=== PATIENT | male | born 1960 | race Hispanic/Latino ===

== ENCOUNTER 2018-05-11 08:52 | Inpatient (IN) | payer MEDICARE, OTHER ==
[2018-05-11 09:55] LABS: Basophils % (Auto) 0.3 % (0.0-1.8); Eosinophils % (Auto) 0.2 % (0.0-4.3); Hematocrit 37.3 % (35.5-45.6); Lymphocytes # (Auto) 0.3 K/mm3 (1.2-5.4); Lymphocytes % (Auto) 4.4 % (13.4-35.0); Mean Corpuscular HGB Conc 35 % (32-34); Mean Corpuscular Hemoglobin 34 pg (28-32); Mean Corpuscular Volume 97 fl (84-94); Monocytes # (Auto) 0.6 K/mm3 (0.0-0.8); Monocytes % (Auto) 9.9 % (0.0-7.3); Platelet Count 156 K/mm3 (140-440); Red Blood Count 3.85 M/mm3 (3.65-5.03); Red Cell Distribution Width 13.6 % (13.2-15.2)
[2018-05-11 09:56] LABS: Alanine Aminotransferase 58 units/L (7-56); Albumin 4.3 g/dL (3.9-5); BUN/Creatinine Ratio 16; Blood Urea Nitrogen 8 mg/dL (9-20); Calcium 8.2 mg/dL (8.4-10.2); Hemolysis Index 34
--- NOTE | 2018-05-11 10:38 | Emergency Department Report ---
HPI - General Chief Complaint: Altered Mental Status Time Seen by Provider: 05/11/18 09:45 - HPI HPI: 58-year-old male presents to the emergency department via EMS from a convenience store where he was found altered, confused and combative. He was given 5 mg of Versed for this reason. Patient says that "I don't remember passing out" he is currently awake and alert but acting very fidgety. He has a past medical history of hypertension but is not on medication. He has a history of hepatitis C, alcohol abuse, some drug use and previous oxycodone addiction. Patient currently just complains of some generalized body aches. Denies having a primary care physician. Denies any tobacco use. Patient says that he did drink last night but does not drink every day. ED Past Medical Hx - Past Medical History Hx Hypertension: Yes (no meds) Hx Congestive Heart Failure: No Hx Diabetes: No Hx Psychiatric Treatment: Yes (alcoholism, drug use, Oxycodone addiction) Hx Asthma: No Hx COPD: No Additional medical history: Hepatitis C, RT BBB - Surgical History Additional Surgical History: Mu. shoulder surgery - Social History Smoking Status: Current Every Day Smoker - Medications Home Medications: Home Medications Medication Instructions Recorded Confirmed Last Taken Type LORazepam [Ativan] 2 mg PO QID 05/11/18 05/11/18 Unknown History Multivitamin Tab [Multiple Vitamin 1 each PO DAILY 05/11/18 05/11/18 Unknown History TAB (Theragran)] ED Review of Systems ROS: Stated complaint: AMS Other details as noted in HPI Comment: All other systems reviewed and negative Constitutional: denies: chills, fever Eyes: denies: eye pain, eye discharge, vision change ENT: denies: ear pain, throat pain Respiratory: denies: cough, shortness of breath, wheezing Cardiovascular: syncope (questionable). denies: chest pain Gastrointestinal: denies: abdominal pain, nausea, diarrhea Genitourinary: denies: urgency, dysuria Musculoskeletal: myalgia. denies: joint swelling Skin: denies: rash, lesions Neurological: denies: headache, numbness Physical Exam - Physical Exam Vital Signs: Vital Signs 05/11/18 05/11/18 05/11/18 09:06 09:19 09:21 Temperature 98.5 F Pulse Rate 96 H 91 H Respiratory 16 16 16 Rate Blood Pressure 148/93 140/87 [Right] O2 Sat by Pulse 96 95 95 Oximetry Physical Exam: GENERAL: The patient is well-developed well-nourished. HENT: Normocephalic. Atraumatic. Patient has moist mucous membranes. EYES: Extraocular motions are intact. Pupils equal reactive to light bilaterally. NECK: Supple. Trachea is midline. CHEST/LUNGS: Clear to auscultation. There is no respiratory distress noted. HEART/CARDIOVASCULAR: Regular. There is no tachycardia. There is no murmur. ABDOMEN: Abdomen is soft, nontender. Patient has normal bowel sounds. There is no abdominal distention. SKIN: Skin is warm and dry. NEURO: Patient is awake and alert and cooperative. Cranial nerves II through XII grossly intact. He is very fidgety. MUSCULOSKELETAL: There is no tenderness or deformity. There is no limitation range of motion. There is no evidence of acute injury. ED Course Vital Signs 05/11/18 05/11/18 05/11/18 09:06 09:19 09:21 Temperature 98.5 F Pulse Rate 96 H 91 H Respiratory 16 16 16 Rate Blood Pressure 148/93 140/87 [Right] O2 Sat by Pulse 96 95 95 Oximetry ED Medical Decision Making - Lab Data Result diagrams: 05/11/18 09:18 05/11/18 17:31 - EKG Data -: EKG Interpreted by Ar EKG shows normal: sinus rhythm, axis (borderline right axis deviation), intervals (prolonged QTc and DE intervals), QRS complexes (right bundle branch block), ST-T waves - EKG Data When compared to previous EKG there are: no significant change Interpretation: unchanged when compared t (12/29/16) - Radiology Data Radiology results: report reviewed CT of the head does not show any acute intracranial process including no ischemia, shift, mass, bleeding or skull fracture. Chronic lacunar infarcts seen in both basal ganglia. - Medical Decision Making Patient was found altered at a convenience store. Despite saying that he had been drinking, his blood alcohol levels negative. However I do believe that he could be a alcoholic as the sodium level came back at 118. This alone could be the reason for the patient's altered mental status. CT of the head did not show any bleed, shift, mass or any other acute process. Urine drug screen positive for benzodiazepines. Otherwise the labs up in unremarkable. Vital signs stable throughout his ED course. The patient will be admitted to the hospital for further evaluation and probable nephrology consultation. Patient was accepted for admission by the hospitalist, Dr. Echols. - Differential Diagnosis hyponatremia, alcohol intoxication, substance abuse, CVA, TIA Critical Care Time: No Critical care attestation.: If time is entered above; I have spent that time in minutes in the direct care of this critically ill patient, excluding procedure time. ED Disposition Clinical Impression: Encephalopathy, Hyponatremia syndrome Hypertension Qualifiers: Hypertension type: essential hypertension Qualified Code(s): I10 - Essential ( primary) hypertension Disposition: OP ADMIT IP TO THIS HOSP Is pt being admited?: Yes Condition: Fair Time of Disposition: 19:10
--- NOTE | 2018-05-11 10:54 | Cat Scan Report ---
CT HEAD WITHOUT CONTRAST: HISTORY: Altered mental status. TECHNIQUE: Sequential 2.5mm CT images. COMPARISON: none. FINDINGS: Cerebral Parenchyma: Mild diffuse volume loss is evident. A chronic 1.3 cm infarct is identified in the right basal ganglia. There are 2 subcentimeter chronic lacunar infarcts in the left basal ganglia. The remaining brain parenchyma is within normal limits. Cerebellum: Within normal limits. Brainstem: Within normal limits. Ventricles: Normal. Sella: Normal. Extra-axial spaces: Normal. Basal Cisterns: Normal. Intracranial Hemorrhage: None. Midline Shift: None. Calvarium: Normal. Sinuses: Normal. Mastoid Air Cells: Normal. Visualized Orbits: Normal. IMPRESSION: No acute intracranial process. Volume loss. Chronic lacunar infarcts in both basal ganglia.
[2018-05-11] MEDS ORDERED: VITAMIN B-1 100 MG, FOLVITE 1 MG, INFUVITE 10 ML in NACL 0.9% 1000 ML 1,000 ML IV ONE (11:22)
[2018-05-11 11:27] LABS: Bilirubin,Urine NEG (Negative); Blood,Urine NEG (Negative); Color,Urine Straw (Yellow); Urobilinogen,Urine < 2.0 mg/dL (<2.0)
--- NOTE | 2018-05-11 11:28 | History and Physical Report ---
History of Present Illness Chief complaint: confused History of present illness: 58 YO Male with ETOH Abuse, ETOH Withdrawl with Seizures, Nicotine Dependence, HCV, HTN , RBBB, presents to ED for evaluation. Pt is confused and unable to provide history. Pt history taken from ED staff. As per staff, the patient was found confused,combative outside a local convenient store. EMS notified, and upon arrival the patient was found to be confused and combative. Pt transported to [facility] for further care and evaluation. Pt seen and evaluated in ED and found to have Encephalopathy, Hyponatremia. Pt admitted to telemetry. Nephrology consulted in ED. No reports of fever, chills, CP, Palpitations, NVD, Syncope, Trauma, BRBPR, Productive cough, recent ill contacts, skin rash, unintentional weight loss, night sweats. Past History Past Medical History: hepatitis, hypertension, seizures Past Surgical History: Other (Bilateral Shoulder surgery) Social history: smoking, alcohol abuse Family history: no significant family history (reviewed) Medications and Allergies Allergies Allergy/AdvReac Type Severity Reaction Status Date / Time Penicillins Allergy Hives Verified 10/23/14 19:07 Home Medications Medication Instructions Recorded Confirmed Last Taken Type LORazepam [Ativan] 2 mg PO QID 05/11/18 05/11/18 Unknown History Multivitamin Tab [Multiple Vitamin 1 each PO DAILY 05/11/18 05/11/18 Unknown History TAB (Theragran)] Active Meds: Active Medications Thiamine HCl 100 mg/ Folic Acid 1 mg/ Multivitamins/Minerals 10 ml/ Sodium Chloride 1,011.2 mls @ 250 mls/hr IV ONCE ONE Stop: 05/11/18 15:24 Review of Systems ROS unobtainable: due to mental status Exam - Constitutional Vitals: Temp Pulse Resp BP Pulse Ox 98.5 F 91 H 16 140/87 95 05/11/18 09:06 05/11/18 09:19 05/11/18 09:21 05/11/18 09:19 05/11/18 09:21 General appearance: Present: mild distress, cachectic - EENT Eyes: Present: miosis ENT: hearing intact, clear oral mucosa - Neck Neck: Present: supple, normal ROM - Respiratory Respiratory effort: normal Respiratory: bilateral: CTA - Cardiovascular Heart Sounds: Present: S1 & S2. Absent: rub, click - Extremities Extremities: pulses symmetrical, No edema Extremity abnormal: edema Peripheral Pulses: within normal limits - Abdominal General gastrointestinal: Present: soft, non-tender, distended Male genitourinary: Present: normal - Integumentary Integumentary: Present: clear, warm, dry - Musculoskeletal Musculoskeletal: generalized weakness - Psychiatric Psychiatric: no appropriate mood/affect, no intact judgment & insight, no memory intact - Neurologic Neurologic: no focal deficits, moves all extremities, no gait normal Results - Labs CBC & Chem 7: 05/11/18 09:18 05/11/18 09:18 Labs: Abnormal lab results 05/11/18 05/11/18 Range/Units 09:18 09:18 MCV 97 H (84-94) fl MCH 34 H (28-32) pg MCHC 35 H (32-34) % Lymph % (Auto) 4.4 L (13.4-35.0) % [place] % (Auto) 9.9 H (0.0-7.3) % Lymph # 0.3 L (1.2-5.4) K/mm3 Seg Neutrophils % 85.2 H (40.0-70.0) % Sodium 118 L* (137-145) mmol/L Chloride 79.7 L (98-107) mmol/L Carbon Dioxide 20 L (22-30) mmol/L BUN 8 L (9-20) mg/dL Creatinine 0.5 L (0.8-1.5) mg/dL Glucose 141 H (75-100) mg/dL Calcium 8.2 L (8.4-10.2) mg/dL AST 54 H (5-40) units/L ALT 58 H (7-56) units/L Assessment and Plan - Patient Problems (1) Encephalopathy Current Visit: Yes Status: Acute Plan to address problem: CT head, neuro checks, aspiration precautions, thyroid panel, fall precautions, BAL (2) Hyponatremia syndrome Current Visit: Yes Status: Acute Plan to address problem: IVF resuscitation therapy, Nephrology consulted in ED. (3) Alcohol abuse Current Visit: No Status: Acute Plan to address problem: CIWA protocol, banana bag, thiamine, folic acid, multivitamin, (4) Nicotine dependence Current Visit: No Status: Acute Qualifiers: Nicotine product type: cigarettes Substance use status: in withdrawal Qualified Code(s): F17.213 - Nicotine dependence, cigarettes, with withdrawal Plan to address problem: Smoking cessation counseling, supportive care. (5) DVT prophylaxis Current Visit: No Status: Acute Plan to address problem: SCD to BLE while in bed.
[2018-05-11] MEDS ORDERED: SODIUM CHLORIDE FLUSH SYRINGE 10 ML IV PRN (11:29)
[2018-05-11] MEDS ORDERED: TYLENOL PO PRN (11:29)
[2018-05-11] MEDS ORDERED: ZOFRAN IV PRN (11:29)
[2018-05-11] MEDS ORDERED: NACL 0.9% 1000 ML 1,000 ML IV SCH (12:00)
[2018-05-11 12:03] LABS: Amphetamine Screen,Urine PRESUMPTIVE NEGATIVE; Cannabinoid Screen,Urine PRESUMPTIVE NEGATIVE; Cocaine Screen,Urine PRESUMPTIVE NEGATIVE; Methadone Screen,Urine PRESUMPTIVE NEGATIVE; Opiate Screen,Urine PRESUMPTIVE NEGATIVE
[2018-05-11 12:16] LABS: Benzodiazepines Screen,Urine PRESUMPTIVE POSITIVE
[2018-05-11] MEDS: ATIVAN PO SCH ×3 (14:00→22:11)
[2018-05-11 18:46] LABS: Blood Urea Nitrogen TNR mg/dL (9-20)
[2018-05-11 18:47] LABS: BUN/Creatinine Ratio TNR; Calcium TNR mg/dL (8.4-10.2); Hemolysis Index TNR
[2018-05-11 21:09] LABS: BUN/Creatinine Ratio 23; Blood Urea Nitrogen 14 mg/dL (9-20); Hemolysis Index 7
[2018-05-11] MEDS ORDERED: D5W 1,000 ML IV SCH (22:00)
[2018-05-11] MEDS: SODIUM CHLORIDE FLUSH SYRINGE 10 ML IV SCH (22:12)
[2018-05-12] MEDS: ATIVAN IV PRN (02:56)
[2018-05-12 06:56] LABS: Alanine Aminotransferase 53 units/L (7-56); BUN/Creatinine Ratio 18; Blood Urea Nitrogen 11 mg/dL (9-20); Calcium 8.9 mg/dL (8.4-10.2); Hemolysis Index 8
--- NOTE | 2018-05-12 08:29 | Consultation ---
History of Present Illness - Reason for Consult Consult date: 05/12/18 hyponatremia - History of Present Illness The patient was a 58 YO Male with history significant for ETOH Abuse, h/o ETOH Withdrawal Seizures, Nicotine Dependence, Hep.C, HTN and RBBB who presented to ED for evaluation of AMS. Pt couldn't remember the events. The patient was found confused, combative outside a local convenient store. EMS found him confused and combative. Pt was transported to [facility] for further care and evaluation. Pt was found to have Encephalopathy and Hyponatremia. Pt admitted to telemetry. Nephrology consulted for Sodium level of 118. He drinks few beers a day. Past History Past Medical History: hepatitis, hypertension, seizures Past Surgical History: Other (Bilateral Shoulder surgery) Social history: smoking, alcohol abuse Family history: no significant family history (reviewed) Medications and Allergies Allergies Allergy/AdvReac Type Severity Reaction Status Date / Time Penicillins Allergy Hives Verified 10/23/14 19:07 Home Medications Medication Instructions Recorded Confirmed Last Taken Type LORazepam [Ativan] 2 mg PO QID 05/11/18 05/11/18 Unknown History Multivitamin Tab [Multiple Vitamin 1 each PO DAILY 05/11/18 05/11/18 Unknown History TAB (Theragran)] Active Meds: Active Medications Acetaminophen (Tylenol) 650 mg PO Q4H PRN PRN Reason: Pain MILD(1-3)/Fever >100.5/MENDEZ Folic Acid (Folvite) 1 mg PO QDAY [facility] Dextrose (D5w) 1,000 mls @ 75 mls/hr IV DIRECT [facility] Last Admin: 05/12/18 04:18 Dose: 75 mls/hr Lorazepam (Ativan) 2 mg PO QID [facility] Last Admin: 05/11/18 22:11 Dose: 2 mg Lorazepam (Ativan) 1 mg IV Q2H PRN PRN Reason: Anxiety Last Admin: 05/12/18 02:56 Dose: 1 mg Multivitamins (Theragran Tab) 1 each PO DAILY [facility] Ondansetron HCl (Zofran) 4 mg IV Q8H PRN PRN Reason: Nausea And Vomiting Sodium Chloride (Sodium Chloride Flush Syringe 10 Ml) 10 ml IV BID [facility] Last Admin: 05/11/18 22:12 Dose: 10 ml Sodium Chloride (Sodium Chloride Flush Syringe 10 Ml) 10 ml IV PRN PRN PRN Reason: LINE FLUSH Thiamine HCl (Vitamin B-1) 100 mg PO QDAY [facility] Review of Systems Constitutional: no weight loss, no weight gain, no fever, no chills, no weakness Cardiovascular: high blood pressure, no chest pain, no orthopnea, no edema, no syncope, no lightheadedness, no shortness of breath, no leg edema Respiratory: no cough Gastrointestinal: no abdominal pain, no nausea, no vomiting, no diarrhea, no melena Neurological: change in mentation, confusion Exam - Vital Signs Vital signs: Vital Signs Temp Pulse Resp BP Pulse Ox 98.5 F 96 H 16 148/93 96 05/11/18 09:06 05/11/18 09:06 05/11/18 09:06 05/11/18 09:06 05/11/18 09:06 - General Appearance General appearance: well-developed, well-nourished, appears stated age, other ( not in distress) EENT: ATNC, PERRL, hearing intact, vision intact Neck: Present: neck supple, trachea midline Respiratory: Clear to Ascultation Heart: regular, S1S2, no murmurs Gastrointestinal: Present: normoactive bowel sounds. Absent: tenderness, distended Integumentary: no rash, warm and dry Neurologic: no focal deficit, no asterixis Musculoskeletal: Present: other (no edema) Results - Lab Results 05/11/18 09:18 05/12/18 13:58 Most recent lab results Calcium 8.9 mg/dL (8.4-10.2) 05/12/18 05:58 Phosphorus 3.00 mg/dL (2.5-4.5) 05/12/18 05:58 Magnesium 2.30 mg/dL (1.7-2.3) 05/12/18 05:58 Assessment and Plan 1. Hyponatremia: Likely secondary to volume depletion. Sodium level is better. Monitor Sodium level. 2. Replete K. 3. Encephalopathy: Improved. 4. Alcohol abuse.
[2018-05-12] MEDS ORDERED: K-DUR PO NR (09:00)
[2018-05-12] MEDS: FOLVITE PO SCH (09:22)
[2018-05-12] MEDS: VITAMIN B-1 PO SCH (09:22)
[2018-05-12] MEDS: THERAGRAN Tab PO SCH (09:22)
[2018-05-12] MEDS: ATIVAN PO SCH ×4 (09:22→21:53)
[2018-05-12] MEDS: SODIUM CHLORIDE FLUSH SYRINGE 10 ML IV SCH ×2 (09:23→21:53)
[2018-05-12 14:32] LABS: BUN/Creatinine Ratio 20; Blood Urea Nitrogen 12 mg/dL (9-20); Calcium 8.8 mg/dL (8.4-10.2); Hemolysis Index 13
--- NOTE | 2018-05-12 15:30 | Progress Note ---
Assessment and Plan Assessment and Plan - Patient Problems (1) Encephalopathy Current Visit: Yes Status: Acute Plan to address problem: Improved (2) Hyponatremia syndrome Current Visit: Yes Status: Acute Plan to address problem: IVF resuscitation therapy, Nephrology consulted in ED. Check Sodium levels (3) Alcohol abuse Current Visit: No Status: Acute Plan to address problem: CIWA protocol, banana bag, thiamine, folic acid, multivitamin, (4) Nicotine dependence Current Visit: No Status: Acute Qualifiers: Nicotine product type: cigarettes Substance use status: in withdrawal Qualified Code(s): F17.213 - Nicotine dependence, cigarettes, with withdrawal Plan to address problem: Smoking cessation counseling, supportive care. (5) DVT prophylaxis Current Visit: No Status: Acute Plan to address problem: SCD to BLE while in bed. Subjective Date of service: 05/12/18 Principal diagnosis: Hyponatremia Interval history: Doing better,more alert Objective - Constitutional Vitals: Vital Signs - 12hr 05/12/18 05/12/18 05/12/18 04:16 07:52 10:00 Temperature 98.1 F 98.6 F Pulse Rate 81 89 Pulse Rate [ 89 Radial] Respiratory 18 18 Rate Blood Pressure 149/92 138/87 O2 Sat by Pulse 99 99 99 Oximetry 05/12/18 11:18 Temperature 98.4 F Pulse Rate 91 H Pulse Rate [ Radial] Respiratory 18 Rate Blood Pressure 144/80 O2 Sat by Pulse 99 Oximetry General appearance: Present: no acute distress, well-nourished - EENT Eyes: PERRL, EOM intact ENT: hearing intact, clear oral mucosa Ears: bilateral: normal - Neck Neck: supple, normal ROM - Respiratory Respiratory effort: normal Respiratory: bilateral: CTA - Breasts Breasts: normal - Cardiovascular Rhythm: regular Heart Sounds: Present: S1 & S2. Absent: gallop, rub Extremities: pulses intact, No edema, normal color, Full ROM - Gastrointestinal General gastrointestinal: Present: soft, non-tender, non-distended, normal bowel sounds - Genitourinary Male genitourinary: normal - Integumentary Integumentary: clear, warm, dry - Musculoskeletal Musculoskeletal: 1, strength equal bilaterally - Neurologic Neurologic: moves all extremities - Psychiatric Psychiatric: memory intact, appropriate mood/affect, intact judgment & insight - Labs CBC & Chem 7: 05/11/18 09:18 05/12/18 13:58 Labs: Abnormal lab results 05/11/18 05/12/18 05/12/18 Range/Units 20:32 05:58 13:58 Sodium 129 L D 131 L 131 L (137-145) mmol/L Potassium 3.5 L (3.6-5.0) mmol/L Chloride 90.0 L 94.2 L 94.7 L (98-107) mmol/L Creatinine 0.6 L 0.6 L 0.6 L (0.8-1.5) mg/dL Glucose 107 H 104 H (75-100) mg/dL AST 48 H (5-40) units/L
[2018-05-13] MEDS: ATIVAN IV PRN (04:24)
[2018-05-13] MEDS: D5/0.45NS 1,000 ML IV SCH ×2 (04:24→18:22)
[2018-05-13 04:38] LABS: BUN/Creatinine Ratio 22; Blood Urea Nitrogen 13 mg/dL (9-20); Calcium 8.7 mg/dL (8.4-10.2); Hemolysis Index 37
[2018-05-13] MEDS: VITAMIN B-1 PO SCH (11:41)
[2018-05-13] MEDS: THERAGRAN Tab PO SCH (11:41)
[2018-05-13] MEDS: ATIVAN PO SCH ×4 (11:42→21:20)
[2018-05-13] MEDS: FOLVITE PO SCH (11:42)
[2018-05-13] MEDS: SODIUM CHLORIDE FLUSH SYRINGE 10 ML IV SCH ×2 (11:51→21:20)
--- NOTE | 2018-05-13 12:31 | Progress Note ---
Assessment and Plan Assessment and plan: 58 YO Male with ETOH Abuse, ETOH Withdrawl with Seizures, Nicotine Dependence, HCV, HTN , RBBB, because he was found confused,combative outside a local convenient store Past History Past Medical History: hepatitis, hypertension, seizures Acute metabolic Encephalopathy Improved , due to hyponatremia Hyponatremia syndrome -Na has improved from 118 to 134 continue nS -likely due to etoh potomania Alcohol abuse CIWA protocol, banana bag, thiamine, folic acid, multivitamin, Nicotine dependence Smoking cessation counseling, supportive care. DVT prophylaxis SCD to BLE while in bed. History Interval history: Review of systems Constitutional: No fevers, no malaise, no joint pains CVS: No chest pain, no orthopnea, no dyspnea on exertion, no pedal edema GI: No abdominal pain, no diarrhea, no vomiting, no constipation Respiratory: No shortness of breath, no wheezing, no coughing Hospitalist Physical - Physical exam Narrative exam: General.: Appears well, no distress, nontoxic HEENT: Moist mucous membranes, extraocular muscles intact, no lymphadenopathy Neck: supple Cardiac: S1-S2 heard Lungs: clear to auscultation bilaterally Abdomen: soft , nontender, nondistended, bowel sounds positive Extremities: no edema clubbing or cyanosis Skin: no rash or lesions Neurologic: no gross focal deficits Psych: appropriate behavior, appropriate mood, corporative, judgment intact - Constitutional Vitals: Temp Pulse Resp BP Pulse Ox 98.4 F 84 18 156/93 99 05/13/18 12:13 05/13/18 12:13 05/13/18 12:13 05/13/18 12:13 05/13/18 12:13 General appearance: Present: no acute distress, well-nourished Results - Labs CBC & Chem 7: 05/11/18 09:18 05/13/18 03:53 Labs: Laboratory Last Values WBC 6.4 K/mm3 (4.5-11.0) 05/11/18 09:18 RBC 3.85 M/mm3 (3.65-5.03) 05/11/18 09:18 Hgb 13.0 gm/dl (11.8-15.2) 05/11/18 09:18 Hct 37.3 % (35.5-45.6) 05/11/18 09:18 MCV 97 fl (84-94) H 05/11/18 09:18 MCH 34 pg (28-32) H 05/11/18 09:18 MCHC 35 % (32-34) H 05/11/18 09:18 RDW 13.6 % (13.2-15.2) 05/11/18 09:18 Plt Count 156 K/mm3 (140-440) 05/11/18 09:18 Lymph % (Auto) 4.4 % (13.4-35.0) L 05/11/18 09:18 [place] % (Auto) 9.9 % (0.0-7.3) H 05/11/18 09:18 Eos % (Auto) 0.2 % (0.0-4.3) 05/11/18 09:18 Baso % (Auto) 0.3 % (0.0-1.8) 05/11/18 09:18 Lymph # 0.3 K/mm3 (1.2-5.4) L 05/11/18 09:18 [place] # 0.6 K/mm3 (0.0-0.8) 05/11/18 09:18 Eos # 0.0 K/mm3 (0.0-0.4) 05/11/18 09:18 Baso # 0.0 K/mm3 (0.0-0.1) 05/11/18 09:18 Seg Neutrophils % 85.2 % (40.0-70.0) H 05/11/18 09:18 Seg Neutrophils # 5.5 K/mm3 (1.8-7.7) 05/11/18 09:18 Sodium 134 mmol/L (137-145) L 05/13/18 03:53 Potassium 3.8 mmol/L (3.6-5.0) 05/13/18 03:53 Chloride 97.1 mmol/L (98-107) L 05/13/18 03:53 Carbon Dioxide 27 mmol/L (22-30) 05/13/18 03:53 Anion Gap 14 mmol/L 05/13/18 03:53 BUN 13 mg/dL (9-20) 05/13/18 03:53 Creatinine 0.6 mg/dL (0.8-1.5) L 05/13/18 03:53 Estimated GFR > 60 ml/min 05/13/18 03:53 BUN/Creatinine Ratio 22 % 05/13/18 03:53 Glucose 108 mg/dL (75-100) H 05/13/18 03:53 POC Glucose 123 (70-105) H 05/12/18 20:21 Calcium 8.7 mg/dL (8.4-10.2) 05/13/18 03:53 Phosphorus 3.00 mg/dL (2.5-4.5) 05/12/18 05:58 Magnesium 2.30 mg/dL (1.7-2.3) 05/12/18 05:58 Total Bilirubin 1.00 mg/dL (0.1-1.2) 05/12/18 05:58 AST 48 units/L (5-40) H 05/12/18 05:58 ALT 53 units/L (7-56) 05/12/18 05:58 Alkaline Phosphatase 122 units/L (35-129) 05/12/18 05:58 Total Protein 7.0 g/dL (6.3-8.2) 05/12/18 05:58 Albumin 4.0 g/dL (3.9-5) 05/12/18 05:58 Albumin/Globulin Ratio 1.3 % 05/12/18 05:58 TSH 12.320 mlU/mL (0.270-4.200) H 05/11/18 09:18 Free T4 0.86 ng/dL (0.76-1.46) 05/11/18 17:31 Urine Color Straw (Yellow) 05/11/18 Unknown Urine Turbidity Clear (Clear) 05/11/18 Unknown Urine pH 7.0 (5.0-7.0) 05/11/18 Unknown Ur Specific [place] 1.006 (1.003-1.030) 05/11/18 Unknown Urine Protein 30 mg/dl mg/dL (Negative) 05/11/18 Unknown Urine Glucose (UA) Neg mg/dL (Negative) 05/11/18 Unknown Urine Ketones Neg mg/dL (Negative) 05/11/18 Unknown Urine Blood Neg (Negative) 05/11/18 Unknown Urine Nitrite Neg (Negative) 05/11/18 Unknown Urine Bilirubin Neg (Negative) 05/11/18 Unknown Urine Urobilinogen < 2.0 mg/dL (<2.0) 05/11/18 Unknown Ur Leukocyte Esterase Neg (Negative) 05/11/18 Unknown Urine WBC (Auto) 1.0 /HPF (0.0-6.0) 05/11/18 Unknown Urine RBC (Auto) 1.0 /HPF (0.0-6.0) 05/11/18 Unknown Urine Opiates Screen Presumptive negative 05/11/18 Unknown Urine Methadone Screen Presumptive negative 05/11/18 Unknown Ur Barbiturates Screen Presumptive negative 05/11/18 Unknown Ur Phencyclidine Scrn Presumptive negative 05/11/18 Unknown Ur Amphetamines Screen Presumptive negative 05/11/18 Unknown U Benzodiazepines Scrn Presumptive positive 05/11/18 Unknown Urine Cocaine Screen Presumptive negative 05/11/18 Unknown U Marijuana (THC) Screen Presumptive negative 05/11/18 Unknown Drugs of Abuse Note Disclamer 05/11/18 Unknown Plasma/Serum Alcohol < 0.01 % (0-0.07) 05/11/18 09:18
--- NOTE | 2018-05-13 15:27 | Progress Note ---
Assessment and Plan Electrolyte Imbalance - Resolving HypoNa, continue IVF NS HTN - F/u on meds ETOH abuse - F/u Mx Subjective Date of service: 05/13/18 Principal diagnosis: Hyponatremia Interval history: No complaints Objective - Vital Signs Vital signs: Vital Signs - 12hr 05/13/18 05/13/18 05/13/18 04:46 04:50 05:12 Temperature 98.9 F Pulse Rate 79 69 78 Respiratory 18 Rate Blood Pressure 126/55 157/92 Blood Pressure 126/55 [Right] O2 Sat by Pulse 98 97 98 Oximetry 05/13/18 05/13/18 08:12 12:13 Temperature 98.6 F 98.4 F Pulse Rate 89 84 Respiratory 18 18 Rate Blood Pressure 148/99 156/93 Blood Pressure [Right] O2 Sat by Pulse 99 99 Oximetry - General Appearance General appearance: other (Awake & alert) EENT: PERRL Neck: no JVD Respiratory: Present: Clear to Ascultation Cardiology: regular, S1S2 Gastrointestinal: normal Neurologic: no focal deficit - Lab 05/11/18 09:18 05/13/18 03:53 Most recent lab results Calcium 8.7 mg/dL (8.4-10.2) 05/13/18 03:53 Phosphorus 3.00 mg/dL (2.5-4.5) 05/12/18 05:58 Magnesium 2.30 mg/dL (1.7-2.3) 05/12/18 05:58
[2018-05-14] MEDS: ATIVAN IV PRN ×2 (00:15→05:43)
[2018-05-14 07:55] LABS: Alanine Aminotransferase 40 units/L (7-56); Albumin 3.9 g/dL (3.9-5); BUN/Creatinine Ratio 22; Blood Urea Nitrogen 11 mg/dL (9-20); Calcium 8.8 mg/dL (8.4-10.2); Hemolysis Index 7
[2018-05-14 08:17] LABS: Basophils % (Auto) 0.8 % (0.0-1.8); Eosinophils # (Auto) 0.1 K/mm3 (0.0-0.4); Eosinophils % (Auto) 3.2 % (0.0-4.3); Hematocrit 40.1 % (35.5-45.6); Hemoglobin 13.7 gm/dl (11.8-15.2); Lymphocytes # (Auto) 0.5 K/mm3 (1.2-5.4); Lymphocytes % (Auto) 11.9 % (13.4-35.0); Mean Corpuscular HGB Conc 34 % (32-34); Mean Corpuscular Hemoglobin 34 pg (28-32); Mean Corpuscular Volume 98 fl (84-94); Monocytes # (Auto) 0.6 K/mm3 (0.0-0.8); Monocytes % (Auto) 14.7 % (0.0-7.3); Platelet Count 156 K/mm3 (140-440); Red Blood Count 4.08 M/mm3 (3.65-5.03); Red Cell Distribution Width 14.1 % (13.2-15.2)
[2018-05-14] MEDS: THERAGRAN Tab PO SCH (09:22)
[2018-05-14] MEDS: VITAMIN B-1 PO SCH (09:22)
[2018-05-14] MEDS: FOLVITE PO SCH (09:22)
[2018-05-14] MEDS: ATIVAN PO SCH ×2 (09:22→13:51)
--- NOTE | 2018-05-14 11:10 | Progress Note ---
Assessment and Plan Electrolyte Imbalance - Resolving HypoNa, continue IVF NS HTN - F/u on meds ETOH abuse - F/u Mx Subjective Date of service: 05/14/18 Principal diagnosis: Hyponatremia Objective - Vital Signs Vital signs: Vital Signs - 12hr 05/14/18 00:48 Temperature 98.9 F Pulse Rate 84 Respiratory 20 Rate Blood Pressure 144/86 O2 Sat by Pulse 97 Oximetry - General Appearance General appearance: other (Confused) EENT: PERRL Neck: no JVD Respiratory: Present: Other (Good air entry) Gastrointestinal: normal Neurologic: no focal deficit - Lab 05/14/18 07:20 05/14/18 07:20 Most recent lab results Calcium 8.8 mg/dL (8.4-10.2) 05/14/18 07:20 Phosphorus 3.60 mg/dL (2.5-4.5) 05/14/18 07:20 Magnesium 2.10 mg/dL (1.7-2.3) 05/14/18 07:20
[2018-05-14] MEDS: D5/0.45NS 1,000 ML IV SCH (13:12)
[2018-05-14 13:26] VITALS: BP 145/92
--- NOTE | 2018-05-14 13:43 | Discharge Summary ---
Providers - Providers Date of Admission: 05/11/18 11:29 Attending physician: GAMALIEL KAUR MD 05/11/18 11:34 Consult to Physician [CONS] Routine Comment: Consulting Provider: SHANTAL MIKE Physician Instructions: Reason For Exam: hyponatremia Primary care physician: LATH HAND Hospitalization Condition: Fair Disposition: DC-30 STILL A PATIENT Exam - Constitutional Vitals: Temp Pulse Resp BP Pulse Ox 98.3 F 80 18 145/92 98 05/14/18 12:18 05/14/18 12:18 05/14/18 12:18 05/14/18 12:18 05/14/18 12:18 Plan Follow up with: PRIMARY CARE, [Primary Care Provider] - 3-5 Days Prescriptions: Folic Acid [Folvite] 1 mg PO QDAY #30 tablet Multivitamin Tab [Multiple Vitamin TAB (Theragran)] 1 each PO DAILY #30 tablet Thiamine [Vitamin B-1] 100 mg PO QDAY #30 tablet
[2018-05-14] MEDS: SODIUM CHLORIDE FLUSH SYRINGE 10 ML IV SCH (13:51)
== END 2018-05-14 15:40 | disposition home or self-care (01) | DRG 640 ==
LOC: ED 08:52 → 3A 11:29 → 4A 12:57 → 3A 05-13 18:13
PROVIDERS: ADMIT Internal Medicine; ATTEND Internal Medicine
DX: E87.1 Hypo-osmolality and hyponatremia (principal); G93.41 Metabolic encephalopathy; F17.213 Nicotine dependence, cigarettes, with withdrawal; I10 Essential (primary) hypertension; B19.20 Unspecified viral hepatitis C without hepatic coma; I45.10 Unspecified right bundle-branch block; F10.10 Alcohol abuse, uncomplicated; Y90.0 Blood alcohol level of less than 20 mg/100 ml; Z88.0 Allergy status to penicillin; Z71.6 Tobacco abuse counseling; Z79.899 Other long term (current) drug therapy
CPT/HCPCS: 36415; 70450; 80048; 80053; 80307; 80320; 81001; 82962; 83735; 84100; 84439; 84443; 85025; 93005; 93010; 96374; G0480; J2060; J2405; J3411; J7030; J7070

== ENCOUNTER 2018-05-25 12:18 | Emergency (ER) | payer MEDICARE, OTHER ==
--- NOTE | 2018-05-25 12:49 | Emergency Department Report ---
ED General Adult HPI - General Stated complaint: DIZZINESS Time Seen by Provider: 05/25/18 12:39 - History of Present Illness Initial comments: 58-year-old male with a history of alcohol abuse, hepatitis C, and seizures who recently was discharged on May 142017 after being hyponatremic presents with the complaint of weakness. Patient states that since being discharged he is having episodes where he has noticed that he's been passing out and falling into things. Patient states that he does not know when he hit his head or when he may have fallen or Patient states that he has recently relapsed and is back on daily ETOH and his last ETOH was this morning. Patient complains of headache. Patient states that he also has lost his sponsor for alcohol abuse. Patient states that his last drink was earlier this morning. Patient denies any suicidal, homicidal patient or any auditory hallucinations. - Related Data Previous Rx's Medication Instructions Recorded Last Taken Type Folic Acid [Folvite] 1 mg PO QDAY #30 tablet 05/14/18 Unknown Rx LORazepam [Ativan] 1 mg PO TID PRN #14 tablet 05/14/18 Unknown Rx Multivitamin Tab [Multiple Vitamin 1 each PO DAILY #30 tablet 05/14/18 Unknown Rx TAB (Theragran)] Thiamine [Vitamin B-1] 100 mg PO QDAY #30 tablet 05/14/18 Unknown Rx Allergies Allergy/AdvReac Type Severity Reaction Status Date / Time Penicillins Allergy Hives Verified 10/23/14 19:07 ED Review of Systems ROS: Stated complaint: DIZZINESS Other details as noted in HPI Constitutional: weakness. denies: chills, fever Eyes: denies: eye pain, eye discharge, vision change ENT: denies: ear pain, throat pain Respiratory: denies: cough, shortness of breath, wheezing Cardiovascular: denies: chest pain, palpitations Endocrine: no symptoms reported Gastrointestinal: denies: abdominal pain, nausea, diarrhea Genitourinary: denies: urgency, dysuria Musculoskeletal: denies: back pain, joint swelling, arthralgia Skin: denies: rash, lesions Neurological: weakness. denies: headache, paresthesias Psychiatric: denies: anxiety, depression Hematological/Lymphatic: denies: easy bleeding, easy bruising ED Past Medical Hx - Past Medical History Hx Hypertension: Yes (no meds) Hx Congestive Heart Failure: No Hx Diabetes: No Hx Psychiatric Treatment: Yes (alcoholism, drug use, Oxycodone addiction) Hx Asthma: No Hx COPD: No Hx HIV: No Additional medical history: Hepatitis C, RT BBB - Surgical History Additional Surgical History: Mu. shoulder surgery - Social History Smoking Status: Current Every Day Smoker - Medications Home Medications: Home Medications Medication Instructions Recorded Confirmed Last Taken Type Folic Acid [Folvite] 1 mg PO QDAY #30 tablet 05/14/18 Unknown Rx LORazepam [Ativan] 1 mg PO TID PRN #14 tablet 05/14/18 Unknown Rx Multivitamin Tab [Multiple Vitamin 1 each PO DAILY #30 tablet 05/14/18 Unknown Rx TAB (Theragran)] Thiamine [Vitamin B-1] 100 mg PO QDAY #30 tablet 05/14/18 Unknown Rx ED Physical Exam - General General appearance: alert, appears intoxicated, other (dehydrated; cachectic; frail) - Head Head exam: Present: atraumatic, normocephalic - Eye Eye exam: Present: scleral icterus - ENT ENT exam: Present: mucous membranes dry - Neck Neck exam: Present: normal inspection, other (no cervical spine tenderness) - Respiratory Respiratory exam: Present: other (course sounds in the bilateral lung bases). Absent: respiratory distress - Cardiovascular Cardiovascular Exam: Present: regular rate, normal rhythm. Absent: systolic murmur, diastolic murmur, rubs, gallop - GI/Abdominal GI/Abdominal exam: Present: soft, tenderness (mild diffuse tenderness), normal bowel sounds, other (ecchymosis noted in the bilateral flank region). Absent: guarding, rebound - Rectal Rectal exam: Present: deferred - Extremities Exam Extremities exam: Present: normal inspection - Back Exam Back exam: Present: normal inspection - Neurological Exam Neurological exam: Present: alert, oriented X3, other (strength is 5 out of 5 bilaterally in upper and lower extremities; sensation intact to light touch) - Psychiatric Psychiatric exam: Present: normal affect, normal mood - Skin Skin exam: Present: warm, dry, intact, other (Multiple chronic abrasions to bilateral upper and lower extremities; jaundice appearance to skin). Absent: rash ED Course Vital Signs 05/25/18 05/25/18 05/25/18 12:38 12:43 12:45 Temperature Pulse Rate 99 H 97 H 96 H Respiratory 20 18 18 Rate Blood Pressure 105/71 111/61 Blood Pressure 105/71 [Left] O2 Sat by Pulse 100 98 Oximetry 05/25/18 05/25/18 05/25/18 12:53 13:00 13:15 Temperature 98.0 F Pulse Rate 91 H 92 H Respiratory 14 11 L Rate Blood Pressure 97/61 108/55 Blood Pressure [Left] O2 Sat by Pulse 99 100 Oximetry 05/25/18 05/25/18 05/25/18 14:29 14:30 14:45 Temperature Pulse Rate 87 Respiratory 15 Rate Blood Pressure 108/55 106/68 114/70 Blood Pressure [Left] O2 Sat by Pulse 100 100 Oximetry 05/25/18 15:00 Temperature Pulse Rate 86 Respiratory 14 Rate Blood Pressure 118/70 Blood Pressure [Left] O2 Sat by Pulse Oximetry ED Medical Decision Making - Lab Data Result diagrams: 05/25/18 13:18 05/25/18 13:18 - EKG Data EKG shows normal: sinus rhythm - EKG Data Interpretation: no acute changes - Radiology Data Radiology results: report reviewed - Medical Decision Making Patient was given fluid hydration in the emergency department. Patient was noted to have a normal neurologic exam. Patient's CT shows the presence of chronic subdurals with no acute component. This was a new finding in comparsion to 05/11/18 CT. Case discussed with hospitalist at this facility and with lack of neurosurgical coverage and the possiblity of acute transformation of subdural or change in neurologic exam, it was deemed that patient would be better served at a facility with neurosurgical coverage. Patient case discussed with [facility] and trauma service states that patient does not need acute trauma service and Dr. Boyd with neurosurgery states that patient does not need acute intervention and thus does not need to be admitted to his service primarily but if hospitalist service at [facility] wants to consult him they are more than willing to. Patient has been accepted to [facility] for continued care and management. - Differential Diagnosis rhabdomyolysis; dehydration; electrolyte abnormality; anemia; subdural hemo Critical Care Time: Yes Critical care time in (mins) excluding proc time.: 50 Critical care attestation.: If time is entered above; I have spent that time in minutes in the direct care of this critically ill patient, excluding procedure time. Care time includes frequent reassessments; physician consultation and direct bedside care. ED Disposition Clinical Impression: Rhabdomyolysis, Subdural hematoma, chronic, Dehydration, Alcohol abuse Disposition: DC/TX-70 ANOTHER TYPE [facility] Is pt being admited?: No Condition: Stable Referrals: PRIMARY CARE, [Primary Care Provider] - 3-5 Days Time of Disposition: 16:03
[2018-05-25] MEDS ORDERED: NACL 0.9% 1000 ML 1,000 ML IV ONE ×2 (12:51→14:34)
[2018-05-25] MEDS ORDERED: FUL-GLO OP ONE (13:00)
[2018-05-25] MEDS ORDERED: TETRACAINE 0.5% ONE (13:00)
[2018-05-25 13:28] LABS: Hemoglobin 11.1 gm/dl (11.8-15.2); Mean Corpuscular HGB Conc 35 % (32-34); Mean Corpuscular Hemoglobin 35 pg (28-32); Mean Corpuscular Volume 100 fl (84-94); Platelet Count 168 K/mm3 (140-440); Red Cell Distribution Width 14.7 % (13.2-15.2)
--- NOTE | 2018-05-25 13:39 | XRay Report ---
AP CHEST: HISTORY: chest pain AP view of the chest demonstrates a normal mediastinal and cardiac contour with clear lungs and normal bony and soft tissue structures. IMPRESSION: Unremarkable AP chest.
[2018-05-25 13:41] LABS: INR 1.05 (0.87-1.13)
[2018-05-25 14:14] LABS: Alanine Aminotransferase 169 units/L (7-56); Albumin 3.8 g/dL (3.9-5); BUN/Creatinine Ratio 38; Blood Urea Nitrogen 38 mg/dL (9-20); Calcium 8.5 mg/dL (8.4-10.2); Hemolysis Index 4
[2018-05-25 14:27] LABS: Anisocytosis 1+; Basophils % (Manual) 0 % (0.0-1.8); Eosinophils % (Manual) 0 % (0.0-4.3); Total Cells Counted 100
[2018-05-25 14:28] LABS: Platelet Estimate Consistent w Auto; Toxic Granulation 1+
--- NOTE | 2018-05-25 14:51 | Cat Scan Report ---
CT HEAD WITHOUT CONTRAST: HISTORY: Weakness. TECHNIQUE: Sequential 2.5mm CT images. COMPARISON: 05/11/18. FINDINGS: These subdural spaces are prominent on today's examination which is a new finding since 05/11/18. The subdural fluid is low density suggesting small chronic subdural collections have developed bilaterally. No acute subdural hemorrhage is appreciated. The remainder of the examination is unchanged since 05/11/18. 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 No evidence for intraparenchymal hemorrhage, acute ischemia or mass. Ventricular size remains normal. IMPRESSION: Bilateral chronic appearing subdural collections are suspected which appear to be new since 05/11/18 exam. Please see above.
--- NOTE | 2018-05-25 14:54 | Cat Scan Report ---
CT ABDOMEN PELVIS WITHOUT CONTRAST: HISTORY: Flank pain with bilateral ecchymosis. COMPARISON: none. TECHNIQUE: Helical CT in 1.25mm intervals without IV contrast. Sagittal and coronal reconstructions. FINDINGS: Lung bases: Normal. Liver: Normal. Biliary system: Cholecystectomy. No biliary dilatation. Pancreas: Normal. Spleen: Normal. Kidneys/ureters/bladder: The bladder is markedly distended with simple appearing fluid. There may be minimal hydroureter bilaterally. No ureteral stones are appreciated. The kidneys are within normal limits. No nephrolithiasis is appreciated. Adrenal glands: Normal. Aorta: Mild distal calcifications. No aneurysm. Intestines: There are several diverticula in the descending and sigmoid colon. No acute inflammatory changes. The remaining bowel loops are unremarkable given no oral contrast was administered. Appendix: Normal. Pelvic viscera: The prostate gland is normal size. [place] prostate gland calcifications are identified. Ascites: None. Adenopathy: None. Musculoskeletal: Intact. Mild lumbar spondylosis. IMPRESSION: Distended bladder. Correlate for bladder obstruction. No nephrolithiasis or ureteral stones are identified. Diverticulosis of the distal colon.
[2018-05-25] MEDS ORDERED: ATIVAN IV STA (15:53)
[2018-05-25 18:51] VITALS: BP 137/81
== END 2018-05-25 19:25 | disposition other institution (70) ==
LOC: ED 12:18
DX: I62.00 Nontraumatic subdural hemorrhage, unspecified (principal); M62.82 Rhabdomyolysis; E86.0 Dehydration; F10.10 Alcohol abuse, uncomplicated; G89.29 Other chronic pain; I10 Essential (primary) hypertension; F17.200 Nicotine dependence, unspecified, uncomplicated; Z88.0 Allergy status to penicillin
CPT/HCPCS: 36415; 70450; 71045; 74176; 80053; 82550; 83735; 84484; 85007; 85025; 85610; 93005; 93010; 96361; 96374; 99291; G0480; J2060; J7030; 80320

== ENCOUNTER 2018-11-11 08:01 | Emergency (ER) | payer MEDICARE, OTHER ==
[2018-11-11] MEDS ORDERED: NACL 0.9% 1000 ML 1,000 ML IV ONE (08:31)
[2018-11-11] MEDS ORDERED: NARCAN 0.4 MG/1 ML IV ONE (08:39)
[2018-11-11] MEDS ORDERED: NARCAN 0.4 MG/1 ML ONE (08:39)
[2018-11-11] MEDS ORDERED: BOOSTRIX IM ONE (08:47)
--- NOTE | 2018-11-11 08:48 | Emergency Department Report ---
ED Altered Mental Status HPI - General Chief Complaint: Altered Mental Status Stated Complaint: AMS Time Seen by Provider: 11/11/18 08:29 Source: patient Mode of arrival: Stretcher Limitations: Altered Mental Status - History of Present Illness Initial Comments: 58-year-old male who was found outside his apartment building in an altered condition. No further information is available at this time. There is no report of a traumatic injury. However the patient was found on the ground. Patient is lethargic, exam and not providing much usual information. He does respond to questioning and answering his name and he is aware he is in hospital. He appears to the stating that he took some kind of substance. However what it was a somewhat unintelligible to me at this point. He is given a small dose of Narcan. MD Complaint: altered mental status -: unknown Severity: moderate, severe Context: unknown, other (prior encephalopathy) Associated Symptoms: other - Related Data Previous Rx's Medication Instructions Recorded Last Taken Type Folic Acid [Folvite] 1 mg PO QDAY #30 tablet 05/14/18 Unknown Rx LORazepam [Ativan] 1 mg PO TID PRN #14 tablet 05/14/18 Unknown Rx Multivitamin Tab [Multiple Vitamin 1 each PO DAILY #30 tablet 05/14/18 Unknown Rx TAB (Theragran)] Thiamine [Vitamin B-1] 100 mg PO QDAY #30 tablet 05/14/18 Unknown Rx Sulfamethoxazole/Trimethoprim 1 each PO BID #14 tablet 11/11/18 Unknown Rx [Bactrim DS TAB] Allergies Allergy/AdvReac Type Severity Reaction Status Date / Time Penicillins Allergy Hives Verified 10/23/14 19:07 ED Review of Systems ROS: Stated complaint: AMS Other details as noted in HPI Comment: Unobtainable due to pts medical conditions ED Past Medical Hx - Past Medical History Hx Hypertension: Yes (no meds) Hx Congestive Heart Failure: No Hx Diabetes: No Hx Liver Disease: Yes Hx Psychiatric Treatment: Yes (alcoholism, drug use, Oxycodone addiction) Hx Asthma: No Hx COPD: No Hx HIV: No Additional medical history: Hepatitis C, RT BBB - Surgical History Additional Surgical History: Mu. shoulder surgery - Social History Smoking Status: Unknown if ever smoked Substance Use Type: None - Medications Home Medications: Home Medications Medication Instructions Recorded Confirmed Last Taken Type Folic Acid [Folvite] 1 mg PO QDAY #30 tablet 05/14/18 Unknown Rx LORazepam [Ativan] 1 mg PO TID PRN #14 tablet 05/14/18 Unknown Rx Multivitamin Tab [Multiple Vitamin 1 each PO DAILY #30 tablet 05/14/18 Unknown Rx TAB (Theragran)] Thiamine [Vitamin B-1] 100 mg PO QDAY #30 tablet 05/14/18 Unknown Rx Sulfamethoxazole/Trimethoprim 1 each PO BID #14 tablet 11/11/18 Unknown Rx [Bactrim DS TAB] ED Physical Exam - General Limitations: Altered Mental Status General appearance: in no apparent distress, lethargic - Head Head exam: Present: atraumatic (no obvious cephalohematoma), normocephalic - Eye Eye exam: Present: normal appearance, PERRL, EOMI. Absent: scleral icterus - ENT ENT exam: Present: mucous membranes moist - Neck Neck exam: Present: normal inspection. Absent: tenderness, meningismus - Respiratory Respiratory exam: Present: normal lung sounds bilaterally. Absent: respiratory distress - Cardiovascular Cardiovascular Exam: Present: regular rate, normal rhythm. Absent: systolic murmur, diastolic murmur, rubs, gallop - GI/Abdominal GI/Abdominal exam: Present: soft, normal bowel sounds. Absent: distended, tenderness, guarding, rebound, rigid - Rectal Rectal exam: Present: deferred - Extremities Exam Extremities exam: Present: normal inspection - Back Exam Back exam: Present: normal inspection - Neurological Exam Neurological exam: Present: altered, CN II-XII intact (Limited exam). Absent: alert (lethargic), oriented X3 (2), motor sensory deficit - Psychiatric Psychiatric exam: Present: normal mood, flat affect - Skin Skin exam: Present: warm, dry, normal color, other (abrasions both knees with peripatellar erythema). Absent: rash ED Course Vital Signs 11/11/18 11/11/18 08:13 10:46 Temperature 97.9 F Pulse Rate 75 84 Respiratory 16 16 Rate Blood Pressure 111/68 Blood Pressure 127/64 [Left] O2 Sat by Pulse 96 96 Oximetry - Reevaluation(s) Reevaluation #1: Nurse reports positive response after Narcan. 11/11/18 10:33 11/11/18 10:33 Reevaluation #2: Patient's admits that he was taking Percocet and Ativan. He denies any intent for self-harm. He states that he did not hurt himself anywhere else besides his knees. He has been reasonably alert Emergency department under his own locomo tion. States he is tender successfully several times and is ready for discharge. 11/11/18 12:06 - Lab Data Result diagrams: 11/11/18 09:01 11/11/18 09:01 Lab Results 11/11/18 11/11/18 11/11/18 Range/Units 08:30 09:01 09:01 WBC (4.5-11.0) K/mm3 RBC (3.65-5.03) M/mm3 Hgb (11.8-15.2) gm/dl Hct (35.5-45.6) % MCV (84-94) fl MCH (28-32) pg MCHC (32-34) % RDW (13.2-15.2) % Plt Count (140-440) K/mm3 Lymph % (Auto) (13.4-35.0) % [place] % (Auto) (0.0-7.3) % Eos % (Auto) (0.0-4.3) % Baso % (Auto) (0.0-1.8) % Lymph # (1.2-5.4) K/mm3 [place] # (0.0-0.8) K/mm3 Eos # (0.0-0.4) K/mm3 Baso # (0.0-0.1) K/mm3 Seg Neutrophils % (40.0-70.0) % Seg Neutrophils # (1.8-7.7) K/mm3 PT 12.9 (12.2-14.9) Sec. INR 0.92 (0.87-1.13) APTT 28.1 (24.2-36.6) Sec. Sodium 143 (137-145) mmol/L Potassium 4.5 (3.6-5.0) mmol/L Chloride 103.6 (98-107) mmol/L Carbon Dioxide 26 (22-30) mmol/L Anion Gap 18 mmol/L BUN 27 H (9-20) mg/dL Creatinine 1.0 (0.8-1.5) mg/dL Estimated GFR > 60 ml/min BUN/Creatinine Ratio 27 % Glucose 105 H (75-100) mg/dL POC Glucose 108 H (70-105) Lactic Acid (0.7-2.0) mmol/L Calcium 9.0 (8.4-10.2) mg/dL Magnesium (1.7-2.3) mg/dL Total Bilirubin (0.1-1.2) mg/dL Direct Bilirubin (0-0.2) mg/dL AST (5-40) units/L ALT (7-56) units/L Alkaline Phosphatase (35-129) units/L Ammonia (25-60) umol/L Total Creatine Kinase (55-170) units/L CK-MB (CK-2) (0.0-4.0) ng/mL CK-MB (CK-2) Rel Index (0-4) Troponin T (0.00-0.029) ng/mL NT-Pro-B Natriuret Pep (0-900) pg/mL Total Protein (6.3-8.2) g/dL Albumin (3.9-5) g/dL Albumin/Globulin Ratio % Urine Color (Yellow) Urine Turbidity (Clear) Urine pH (5.0-7.0) Ur Specific [place] (1.003-1.030) Urine Protein (Negative) mg/dL Urine Glucose (UA) (Negative) mg/dL Urine Ketones (Negative) mg/dL Urine Blood (Negative) Urine Nitrite (Negative) Urine Bilirubin (Negative) Urine Urobilinogen (<2.0) mg/dL Ur Leukocyte Esterase (Negative) Urine WBC (Auto) (0.0-6.0) /HPF Urine RBC (Auto) (0.0-6.0) /HPF Urine Opiates Screen Urine Methadone Screen Acetaminophen (10.0-30.0) ug/mL Ur Barbiturates Screen Ur Phencyclidine Scrn Ur Amphetamines Screen U Benzodiazepines Scrn Urine Cocaine Screen U Marijuana (THC) Screen Drugs of Abuse Note Plasma/Serum Alcohol (0-0.07) % 11/11/18 11/11/18 11/11/18 Range/Units 09:01 09:01 09:01 WBC (4.5-11.0) K/mm3 RBC (3.65-5.03) M/mm3 Hgb (11.8-15.2) gm/dl Hct (35.5-45.6) % MCV (84-94) fl MCH (28-32) pg MCHC (32-34) % RDW (13.2-15.2) % Plt Count (140-440) K/mm3 Lymph % (Auto) (13.4-35.0) % [place] % (Auto) (0.0-7.3) % Eos % (Auto) (0.0-4.3) % Baso % (Auto) (0.0-1.8) % Lymph # (1.2-5.4) K/mm3 [place] # (0.0-0.8) K/mm3 Eos # (0.0-0.4) K/mm3 Baso # (0.0-0.1) K/mm3 Seg Neutrophils % (40.0-70.0) % Seg Neutrophils # (1.8-7.7) K/mm3 PT (12.2-14.9) Sec. INR (0.87-1.13) APTT (24.2-36.6) Sec. Sodium (137-145) mmol/L Potassium (3.6-5.0) mmol/L Chloride (98-107) mmol/L Carbon Dioxide (22-30) mmol/L Anion Gap mmol/L BUN (9-20) mg/dL Creatinine (0.8-1.5) mg/dL Estimated GFR ml/min BUN/Creatinine Ratio % Glucose (75-100) mg/dL POC Glucose (70-105) Lactic Acid 1.00 (0.7-2.0) mmol/L Calcium (8.4-10.2) mg/dL Magnesium 2.20 (1.7-2.3) mg/dL Total Bilirubin 0.30 (0.1-1.2) mg/dL Direct Bilirubin < 0.2 (0-0.2) mg/dL AST 41 H (5-40) units/L ALT 40 (7-56) units/L Alkaline Phosphatase 99 (35-129) units/L Ammonia 27.0 (25-60) umol/L Total Creatine Kinase 179 H (55-170) units/L CK-MB (CK-2) 5.0 H (0.0-4.0) ng/mL CK-MB (CK-2) Rel Index 2.7 (0-4) Troponin T < 0.010 (0.00-0.029) ng/mL NT-Pro-B Natriuret Pep 100.2 (0-900) pg/mL Total Protein 7.1 (6.3-8.2) g/dL Albumin 4.3 (3.9-5) g/dL Albumin/Globulin Ratio 1.5 % Urine Color (Yellow) Urine Turbidity (Clear) Urine pH (5.0-7.0) Ur Specific [place] (1.003-1.030) Urine Protein (Negative) mg/dL Urine Glucose (UA) (Negative) mg/dL Urine Ketones (Negative) mg/dL Urine Blood (Negative) Urine Nitrite (Negative) Urine Bilirubin (Negative) Urine Urobilinogen (<2.0) mg/dL Ur Leukocyte Esterase (Negative) Urine WBC (Auto) (0.0-6.0) /HPF Urine RBC (Auto) (0.0-6.0) /HPF Urine Opiates Screen Urine Methadone Screen Acetaminophen (10.0-30.0) ug/mL Ur Barbiturates Screen Ur Phencyclidine Scrn Ur Amphetamines Screen U Benzodiazepines Scrn Urine Cocaine Screen U Marijuana (THC) Screen Drugs of Abuse Note Plasma/Serum Alcohol (0-0.07) % 11/11/18 11/11/18 11/11/18 Range/Units 09:01 09:01 09:01 WBC 7.2 (4.5-11.0) K/mm3 RBC 3.86 (3.65-5.03) M/mm3 Hgb 12.8 (11.8-15.2) gm/dl Hct 37.5 (35.5-45.6) % MCV 97 H (84-94) fl MCH 33 H (28-32) pg MCHC 34 (32-34) % RDW 13.9 (13.2-15.2) % Plt Count 155 (140-440) K/mm3 Lymph % (Auto) 4.7 L (13.4-35.0) % [place] % (Auto) 7.8 H (0.0-7.3) % Eos % (Auto) 1.3 (0.0-4.3) % Baso % (Auto) 0.3 (0.0-1.8) % Lymph # 0.3 L (1.2-5.4) K/mm3 [place] # 0.6 (0.0-0.8) K/mm3 Eos # 0.1 (0.0-0.4) K/mm3 Baso # 0.0 (0.0-0.1) K/mm3 Seg Neutrophils % 85.9 H (40.0-70.0) % Seg Neutrophils # 6.2 (1.8-7.7) K/mm3 PT (12.2-14.9) Sec. INR (0.87-1.13) APTT (24.2-36.6) Sec. Sodium (137-145) mmol/L Potassium (3.6-5.0) mmol/L Chloride (98-107) mmol/L Carbon Dioxide (22-30) mmol/L Anion Gap mmol/L BUN (9-20) mg/dL Creatinine (0.8-1.5) mg/dL Estimated GFR ml/min BUN/Creatinine Ratio % Glucose (75-100) mg/dL POC Glucose (70-105) Lactic Acid (0.7-2.0) mmol/L Calcium (8.4-10.2) mg/dL Magnesium (1.7-2.3) mg/dL Total Bilirubin (0.1-1.2) mg/dL Direct Bilirubin (0-0.2) mg/dL AST (5-40) units/L ALT (7-56) units/L Alkaline Phosphatase (35-129) units/L Ammonia (25-60) umol/L Total Creatine Kinase (55-170) units/L CK-MB (CK-2) (0.0-4.0) ng/mL CK-MB (CK-2) Rel Index (0-4) Troponin T (0.00-0.029) ng/mL NT-Pro-B Natriuret Pep (0-900) pg/mL Total Protein (6.3-8.2) g/dL Albumin (3.9-5) g/dL Albumin/Globulin Ratio % Urine Color (Yellow) Urine Turbidity (Clear) Urine pH (5.0-7.0) Ur Specific [place] (1.003-1.030) Urine Protein (Negative) mg/dL Urine Glucose (UA) (Negative) mg/dL Urine Ketones (Negative) mg/dL Urine Blood (Negative) Urine Nitrite (Negative) Urine Bilirubin (Negative) Urine Urobilinogen (<2.0) mg/dL Ur Leukocyte Esterase (Negative) Urine WBC (Auto) (0.0-6.0) /HPF Urine RBC (Auto) (0.0-6.0) /HPF Urine Opiates Screen Urine Methadone Screen Acetaminophen < 5.0 L (10.0-30.0) ug/mL Ur Barbiturates Screen Ur Phencyclidine Scrn Ur Amphetamines Screen U Benzodiazepines Scrn Urine Cocaine Screen U Marijuana (THC) Screen Drugs of Abuse Note Plasma/Serum Alcohol < 0.01 (0-0.07) % 11/11/18 11/11/18 Range/Units 10:22 10:22 WBC (4.5-11.0) K/mm3 RBC (3.65-5.03) M/mm3 Hgb (11.8-15.2) gm/dl Hct (35.5-45.6) % MCV (84-94) fl MCH (28-32) pg MCHC (32-34) % RDW (13.2-15.2) % Plt Count (140-440) K/mm3 Lymph % (Auto) (13.4-35.0) % [place] % (Auto) (0.0-7.3) % Eos % (Auto) (0.0-4.3) % Baso % (Auto) (0.0-1.8) % Lymph # (1.2-5.4) K/mm3 [place] # (0.0-0.8) K/mm3 Eos # (0.0-0.4) K/mm3 Baso # (0.0-0.1) K/mm3 Seg Neutrophils % (40.0-70.0) % Seg Neutrophils # (1.8-7.7) K/mm3 PT (12.2-14.9) Sec. INR (0.87-1.13) APTT (24.2-36.6) Sec. Sodium (137-145) mmol/L Potassium (3.6-5.0) mmol/L Chloride (98-107) mmol/L Carbon Dioxide (22-30) mmol/L Anion Gap mmol/L BUN (9-20) mg/dL Creatinine (0.8-1.5) mg/dL Estimated GFR ml/min BUN/Creatinine Ratio % Glucose (75-100) mg/dL POC Glucose (70-105) Lactic Acid (0.7-2.0) mmol/L Calcium (8.4-10.2) mg/dL Magnesium (1.7-2.3) mg/dL Total Bilirubin (0.1-1.2) mg/dL Direct Bilirubin (0-0.2) mg/dL AST (5-40) units/L ALT (7-56) units/L Alkaline Phosphatase (35-129) units/L Ammonia (25-60) umol/L Total Creatine Kinase (55-170) units/L CK-MB (CK-2) (0.0-4.0) ng/mL CK-MB (CK-2) Rel Index (0-4) Troponin T (0.00-0.029) ng/mL NT-Pro-B Natriuret Pep (0-900) pg/mL Total Protein (6.3-8.2) g/dL Albumin (3.9-5) g/dL Albumin/Globulin Ratio % Urine Color Yellow (Yellow) Urine Turbidity Clear (Clear) Urine pH 6.0 (5.0-7.0) Ur Specific [place] 1.015 (1.003-1.030) Urine Protein <15 mg/dl (Negative) mg/dL Urine Glucose (UA) Neg (Negative) mg/dL Urine Ketones Tr (Negative) mg/dL Urine Blood Neg (Negative) Urine Nitrite Neg (Negative) Urine Bilirubin Neg (Negative) Urine Urobilinogen < 2.0 (<2.0) mg/dL Ur Leukocyte Esterase Neg (Negative) Urine WBC (Auto) < 1.0 (0.0-6.0) /HPF Urine RBC (Auto) < 1.0 (0.0-6.0) /HPF Urine Opiates Screen Presumptive negative Urine Methadone Screen Presumptive negative Acetaminophen (10.0-30.0) ug/mL Ur Barbiturates Screen Presumptive negative Ur Phencyclidine Scrn Presumptive negative Ur Amphetamines Screen Presumptive negative U Benzodiazepines Scrn Presumptive negative Urine Cocaine Screen Presumptive negative U Marijuana (THC) Screen Presumptive negative Drugs of Abuse Note Disclamer Plasma/Serum Alcohol (0-0.07) % Laboratory Results - last 24 hr 11/11/18 11/11/18 11/11/18 08:30 09:01 09:01 WBC RBC Hgb Hct MCV MCH MCHC RDW Plt Count Lymph % (Auto) [place] % (Auto) Eos % (Auto) Baso % (Auto) Lymph # [place] # Eos # Baso # Seg Neutrophils % Seg Neutrophils # PT 12.9 INR 0.92 APTT 28.1 Sodium 143 Potassium 4.5 Chloride 103.6 Carbon Dioxide 26 Anion Gap 18 BUN 27 H Creatinine 1.0 Estimated GFR > 60 BUN/Creatinine Ratio 27 Glucose 105 H POC Glucose 108 H Lactic Acid Calcium 9.0 Magnesium Total Bilirubin Direct Bilirubin AST ALT Alkaline Phosphatase Ammonia Total Creatine Kinase CK-MB (CK-2) CK-MB (CK-2) Rel Index Troponin T NT-Pro-B Natriuret Pep Total Protein Albumin Albumin/Globulin Ratio Acetaminophen Plasma/Serum Alcohol 11/11/18 11/11/18 11/11/18 09:01 09:01 09:01 WBC RBC Hgb Hct MCV MCH MCHC RDW Plt Count Lymph % (Auto) [place] % (Auto) Eos % (Auto) Baso % (Auto) Lymph # [place] # Eos # Baso # Seg Neutrophils % Seg Neutrophils # PT INR APTT Sodium Potassium Chloride Carbon Dioxide Anion Gap BUN Creatinine Estimated GFR BUN/Creatinine Ratio Glucose POC Glucose Lactic Acid 1.00 Calcium Magnesium 2.20 Total Bilirubin 0.30 Direct Bilirubin < 0.2 AST 41 H ALT 40 Alkaline Phosphatase 99 Ammonia 27.0 Total Creatine Kinase 179 H CK-MB (CK-2) 5.0 H CK-MB (CK-2) Rel Index 2.7 Troponin T < 0.010 NT-Pro-B Natriuret Pep 100.2 Total Protein 7.1 Albumin 4.3 Albumin/Globulin Ratio 1.5 Acetaminophen Plasma/Serum Alcohol 11/11/18 11/11/18 11/11/18 09:01 09:01 09:01 WBC 7.2 RBC 3.86 Hgb 12.8 Hct 37.5 MCV 97 H MCH 33 H MCHC 34 RDW 13.9 Plt Count 155 Lymph % (Auto) 4.7 L [place] % (Auto) 7.8 H Eos % (Auto) 1.3 Baso % (Auto) 0.3 Lymph # 0.3 L [place] # 0.6 Eos # 0.1 Baso # 0.0 Seg Neutrophils % 85.9 H Seg Neutrophils # 6.2 PT INR APTT Sodium Potassium Chloride Carbon Dioxide Anion Gap BUN Creatinine Estimated GFR BUN/Creatinine Ratio Glucose POC Glucose Lactic Acid Calcium Magnesium Total Bilirubin Direct Bilirubin AST ALT Alkaline Phosphatase Ammonia Total Creatine Kinase CK-MB (CK-2) CK-MB (CK-2) Rel Index Troponin T NT-Pro-B Natriuret Pep Total Protein Albumin Albumin/Globulin Ratio Acetaminophen < 5.0 L Plasma/Serum Alcohol < 0.01 - Radiology Data Radiology results: report reviewed (CT head no acute process. Chest x-ray showed a left lower lobe infiltrate versus atelectasis) Critical care attestation.: If time is entered above; I have spent that time in minutes in the direct care of this critically ill patient, excluding procedure time. ED Disposition Clinical Impression: Wound infection Narcotic overdose Qualifiers: Encounter type: initial encounter Injury intent: accidental or unintentional Qualified Code(s): T40.601A - Poisoning by unspecified narcotics, accidental (unintentional), initial encounter Disposition: TO HOME OR SELFCARE Is pt being admited?: No Does the pt Need Aspirin: No Condition: Stable Instructions: Wound Infection (ED), Opioid Dependence (ED), Narcotic Abuse (ED) Additional Instructions: Follow-up with your primary care provider. Obviously avoid excessive pain medication. Rx for her infected abrasions of knees. Return any fever or chills or any acute change as needed. Prescriptions: Sulfamethoxazole/Trimethoprim [Bactrim DS TAB] 1 each PO BID #14 tablet Time of Disposition: 12:09
--- NOTE | 2018-11-11 08:50 | XRay Report ---
PROCEDURE: XR CHEST 1V AP TECHNIQUE: AP portable chest radiograph HISTORY: hypertension COMPARISONS: 05/25/2018 FINDINGS: No mediastinal shift. Cardiac silhouette is not enlarged. No pneumothorax or definite effusion. Ill-d efined left basilar opacity. No acute skeletal findings. Upper abdominal surgical clips. IMPRESSION: Ill-defined left basilar opacity may be due to atelectasis or infection. This document is electronically signed by Lambert Lopez MD., November 11 2018 08:47:31 AM ET
--- NOTE | 2018-11-11 09:09 | Cat Scan Report ---
EXAM: CT HEAD/BRAIN WO CON HISTORY: AMS TECHNIQUE: Spiral axial CT images are obtained through the brain without the administration of intra venous contrast. COMPARISON: None available. FINDINGS: There is mild diffuse cerebral cortical atrophy. The centrum semiovale, basal ganglia, cerebellum, an d brainstem are otherwise grossly unremarkable for a noncontrast CT scan. There is no acute intracranial hemorrhage, discernible acute infarction, mass lesion, midline shift, or hydrocephalus seen. No extra-axial mass or abnormal fluid collection is seen. The calvarium is intact. The partially imaged paranasal sinuses, middle ear cavities, and mastoid ai r cells are clear. IMPRESSION: 1. No intracranial hemorrhage, discernible acute infarction, mass lesions, midline shift, mass effe ct or hydrocephalus seen. 2. Mild diffuse cerebral cortical atrophy. This document is electronically signed by Jean Pierre Allen MD., November 11 2018 09:07:40 AM ET
[2018-11-11 09:15] LABS: Basophils % (Auto) 0.3 % (0.0-1.8); Eosinophils # (Auto) 0.1 K/mm3 (0.0-0.4); Eosinophils % (Auto) 1.3 % (0.0-4.3); Hematocrit 37.5 % (35.5-45.6); Hemoglobin 12.8 gm/dl (11.8-15.2); Lymphocytes # (Auto) 0.3 K/mm3 (1.2-5.4); Lymphocytes % (Auto) 4.7 % (13.4-35.0); Mean Corpuscular HGB Conc 34 % (32-34); Mean Corpuscular Volume 97 fl (84-94); Monocytes # (Auto) 0.6 K/mm3 (0.0-0.8); Monocytes % (Auto) 7.8 % (0.0-7.3); Platelet Count 155 K/mm3 (140-440); Red Blood Count 3.86 M/mm3 (3.65-5.03); Red Cell Distribution Width 13.9 % (13.2-15.2)
[2018-11-11 09:38] LABS: Alanine Aminotransferase 40 units/L (7-56); Albumin 4.3 g/dL (3.9-5)
[2018-11-11 09:44] LABS: Bilirubin,Direct < 0.2 mg/dL (0-0.2)
[2018-11-11 09:54] LABS: INR 0.92 (0.87-1.13)
[2018-11-11 09:55] LABS: Partial Thromboplastin Time 28.1 Sec. (24.2-36.6)
[2018-11-11 10:10] LABS: BUN/Creatinine Ratio 27; Blood Urea Nitrogen 27 mg/dL (9-20); Hemolysis Index 5
[2018-11-11] MEDS ORDERED: LEVAQUIN 750MG/150ML 750 MG/150 ML BAG IV ONE (10:35)
[2018-11-11 10:46] VITALS: BP 127/64
[2018-11-11 10:55] LABS: Bilirubin,Urine NEG (Negative); Blood,Urine NEG (Negative); Color,Urine Yellow (Yellow); Protein,Urine <15 mg/dL mg/dL (Negative); RBC,Urine < 1.0 /HPF (0.0-6.0); Urobilinogen,Urine < 2.0 mg/dL (<2.0)
[2018-11-11 11:06] LABS: Amphetamine Screen,Urine PRESUMPTIVE NEGATIVE; Benzodiazepines Screen,Urine PRESUMPTIVE NEGATIVE; Cannabinoid Screen,Urine PRESUMPTIVE NEGATIVE; Cocaine Screen,Urine PRESUMPTIVE NEGATIVE; Methadone Screen,Urine PRESUMPTIVE NEGATIVE; Opiate Screen,Urine PRESUMPTIVE NEGATIVE
[2018-11-11 11:39] LABS: WBC,Urine < 1.0 /HPF (0.0-6.0)
== END 2018-11-11 13:03 | disposition home or self-care (01) ==
LOC: ED 08:01
DX: T40.601A Poisoning by unspecified narcotics, accidental (unintentional), initial encounter (principal); T81.49XA Infection following a procedure, other surgical site, initial encounter; I10 Essential (primary) hypertension; Z88.0 Allergy status to penicillin; Y92.89 Other specified places as the place of occurrence of the external cause
CPT/HCPCS: 36415; 70450; 71045; 80048; 80076; 80307; 81001; 82140; 82550; 82553; 82962; 83735; 83880; 84484; 85025; 85610; 85730; 90471; 90715; 93005; 93010; 96365; 96375; 99284; G0480; J1956; J2310; J7030; 80320

== ENCOUNTER 2019-02-24 16:15 | Emergency (ER) | payer MEDICARE, OTHER ==
[2019-02-24 16:54] VITALS: BP 124/78
--- NOTE | 2019-02-24 17:29 | Emergency Department Report ---
ED General Adult HPI - General Chief complaint: Altered Mental Status Stated complaint: AMS Time Seen by Provider: 02/24/19 16:56 Source: EMS Mode of arrival: Stretcher Limitations: Altered Mental Status - History of Present Illness Initial comments: The patient presents to the emergency department for altered mental status. The patient was found by his neighbors rambling through his home and not making logical sentences. On examination the patient is altered and not able to add to the H&P. When asked the date the pt states it's May 2012 -: unknown Severity scale (0 -10): 0 Improves with: none Worsens with: none Associated Symptoms: denies other symptoms Treatments Prior to Arrival: none - Related Data Previous Rx's Medication Instructions Recorded Last Taken Type Folic Acid [Folvite] 1 mg PO QDAY #30 tablet 05/14/18 Unknown Rx LORazepam [Ativan] 1 mg PO TID PRN #14 tablet 05/14/18 Unknown Rx Multivitamin Tab [Multiple Vitamin 1 each PO DAILY #30 tablet 05/14/18 Unknown Rx TAB (Theragran)] Thiamine [Vitamin B-1] 100 mg PO QDAY #30 tablet 05/14/18 Unknown Rx Sulfamethoxazole/Trimethoprim 1 each PO BID #14 tablet 11/11/18 Unknown Rx [Bactrim DS TAB] Allergies Allergy/AdvReac Type Severity Reaction Status Date / Time Penicillins Allergy Hives Verified 10/23/14 19:07 ED Review of Systems ROS: Stated complaint: AMS Other details as noted in HPI Comment: Unobtainable due to pts medical conditions ED Past Medical Hx - Past Medical History Hx Hypertension: Yes (no meds) Hx Congestive Heart Failure: No Hx Diabetes: No Hx Liver Disease: Yes Hx Psychiatric Treatment: Yes (alcoholism, drug use, Oxycodone addiction) Hx Asthma: No Hx COPD: No Hx HIV: No Additional medical history: Hepatitis C, RT BBB - Surgical History Additional Surgical History: Mu. shoulder surgery - Social History Smoking Status: Former Smoker Substance Use Type: Alcohol - Medications Home Medications: Home Medications Medication Instructions Recorded Confirmed Last Taken Type Folic Acid [Folvite] 1 mg PO QDAY #30 tablet 05/14/18 Unknown Rx LORazepam [Ativan] 1 mg PO TID PRN #14 tablet 05/14/18 Unknown Rx Multivitamin Tab [Multiple Vitamin 1 each PO DAILY #30 tablet 05/14/18 Unknown Rx TAB (Theragran)] Thiamine [Vitamin B-1] 100 mg PO QDAY #30 tablet 05/14/18 Unknown Rx Sulfamethoxazole/Trimethoprim 1 each PO BID #14 tablet 11/11/18 Unknown Rx [Bactrim DS TAB] ED Physical Exam - General Limitations: Altered Mental Status General appearance: other (confused) - Head Head exam: Present: atraumatic, normocephalic - Eye Eye exam: Present: normal appearance, PERRL, EOMI - ENT ENT exam: Present: mucous membranes dry - Neck Neck exam: Present: normal inspection - Respiratory Respiratory exam: Present: normal lung sounds bilaterally. Absent: respiratory distress, wheezes, rales - Cardiovascular Cardiovascular Exam: Absent: regular rate, normal rhythm, tachycardia - GI/Abdominal GI/Abdominal exam: Present: soft, normal bowel sounds. Absent: distended, tenderness, rebound - Extremities Exam Extremities exam: Present: normal inspection - Neurological Exam Neurological exam: Present: altered - Psychiatric Psychiatric exam: Present: other (altered) - Skin Skin exam: Present: warm, dry, intact, normal color. Absent: rash ED Course Vital Signs 02/24/19 02/24/19 02/24/19 16:46 16:53 16:56 Temperature 99.0 F 99.0 F Pulse Rate 84 83 Respiratory 18 13 16 Rate Blood Pressure 122/80 Blood Pressure 124/78 [Right] O2 Sat by Pulse 98 97 99 Oximetry ED Medical Decision Making - Lab Data Result diagrams: 02/24/19 17:47 02/24/19 17:47 Lab Results 02/24/19 02/24/19 02/24/19 Range/Units 17:47 17:47 17:47 WBC 5.5 (4.5-11.0) K/mm3 RBC 4.30 (3.65-5.03) M/mm3 Hgb 14.1 (11.8-15.2) gm/dl Hct 41.6 (35.5-45.6) % MCV 97 H (84-94) fl MCH 33 H (28-32) pg MCHC 34 (32-34) % RDW 13.8 (13.2-15.2) % Plt Count 161 (140-440) K/mm3 Lymph % (Auto) 8.7 L (13.4-35.0) % [place] % (Auto) 8.8 H (0.0-7.3) % Eos % (Auto) 0.5 (0.0-4.3) % Baso % (Auto) 0.4 (0.0-1.8) % Lymph # 0.5 L (1.2-5.4) K/mm3 Putnam # 0.5 (0.0-0.8) K/mm3 Eos # 0.0 (0.0-0.4) K/mm3 Baso # 0.0 (0.0-0.1) K/mm3 Seg Neutrophils % 81.6 H (40.0-70.0) % Seg Neutrophils # 4.5 (1.8-7.7) K/mm3 PT 13.1 (12.2-14.9) Sec. INR 1.02 (0.87-1.13) APTT 25.8 (24.2-36.6) Sec. Sodium 144 (137-145) mmol/L Potassium 4.2 (3.6-5.0) mmol/L Chloride 104.7 (98-107) mmol/L Carbon Dioxide 27 (22-30) mmol/L Anion Gap 17 mmol/L BUN 16 (9-20) mg/dL Creatinine 1.3 (0.8-1.5) mg/dL Estimated GFR 56 ml/min BUN/Creatinine Ratio 12 % Glucose 84 (75-100) mg/dL Lactic Acid (0.7-2.0) mmol/L Calcium 9.7 (8.4-10.2) mg/dL Total Bilirubin 0.50 (0.1-1.2) mg/dL AST 28 (5-40) units/L ALT 26 (7-56) units/L Alkaline Phosphatase 86 (35-129) units/L Ammonia (25-60) umol/L Troponin T < 0.010 (0.00-0.029) ng/mL Total Protein 7.7 (6.3-8.2) g/dL Albumin 4.5 (3.9-5) g/dL Albumin/Globulin Ratio 1.4 % TSH (0.270-4.200) mlU/mL Salicylates (2.8-20.0) mg/dL Acetaminophen (10.0-30.0) ug/mL Plasma/Serum Alcohol (0-0.07) % 02/24/19 02/24/19 02/24/19 Range/Units 17:47 17:47 17:47 WBC (4.5-11.0) K/mm3 RBC (3.65-5.03) M/mm3 Hgb (11.8-15.2) gm/dl Hct (35.5-45.6) % MCV (84-94) fl MCH (28-32) pg MCHC (32-34) % RDW (13.2-15.2) % Plt Count (140-440) K/mm3 Lymph % (Auto) (13.4-35.0) % [place] % (Auto) (0.0-7.3) % Eos % (Auto) (0.0-4.3) % Baso % (Auto) (0.0-1.8) % Lymph # (1.2-5.4) K/mm3 [place] # (0.0-0.8) K/mm3 Eos # (0.0-0.4) K/mm3 Baso # (0.0-0.1) K/mm3 Seg Neutrophils % (40.0-70.0) % Seg Neutrophils # (1.8-7.7) K/mm3 PT (12.2-14.9) Sec. INR (0.87-1.13) APTT (24.2-36.6) Sec. Sodium (137-145) mmol/L Potassium (3.6-5.0) mmol/L Chloride (98-107) mmol/L Carbon Dioxide (22-30) mmol/L Anion Gap mmol/L BUN (9-20) mg/dL Creatinine (0.8-1.5) mg/dL Estimated GFR ml/min BUN/Creatinine Ratio % Glucose (75-100) mg/dL Lactic Acid 0.90 (0.7-2.0) mmol/L Calcium (8.4-10.2) mg/dL Total Bilirubin (0.1-1.2) mg/dL AST (5-40) units/L ALT (7-56) units/L Alkaline Phosphatase (35-129) units/L Ammonia 29.0 (25-60) umol/L Troponin T (0.00-0.029) ng/mL Total Protein (6.3-8.2) g/dL Albumin (3.9-5) g/dL Albumin/Globulin Ratio % TSH 1.580 (0.270-4.200) mlU/mL Salicylates (2.8-20.0) mg/dL Acetaminophen (10.0-30.0) ug/mL Plasma/Serum Alcohol (0-0.07) % 02/24/19 02/24/19 02/24/19 Range/Units 17:47 17:47 17:47 WBC (4.5-11.0) K/mm3 RBC (3.65-5.03) M/mm3 Hgb (11.8-15.2) gm/dl Hct (35.5-45.6) % MCV (84-94) fl MCH (28-32) pg MCHC (32-34) % RDW (13.2-15.2) % Plt Count (140-440) K/mm3 Lymph % (Auto) (13.4-35.0) % [place] % (Auto) (0.0-7.3) % Eos % (Auto) (0.0-4.3) % Baso % (Auto) (0.0-1.8) % Lymph # (1.2-5.4) K/mm3 [place] # (0.0-0.8) K/mm3 Eos # (0.0-0.4) K/mm3 Baso # (0.0-0.1) K/mm3 Seg Neutrophils % (40.0-70.0) % Seg Neutrophils # (1.8-7.7) K/mm3 PT (12.2-14.9) Sec. INR (0.87-1.13) APTT (24.2-36.6) Sec. Sodium (137-145) mmol/L Potassium (3.6-5.0) mmol/L Chloride (98-107) mmol/L Carbon Dioxide (22-30) mmol/L Anion Gap mmol/L BUN (9-20) mg/dL Creatinine (0.8-1.5) mg/dL Estimated GFR ml/min BUN/Creatinine Ratio % Glucose (75-100) mg/dL Lactic Acid (0.7-2.0) mmol/L Calcium (8.4-10.2) mg/dL Total Bilirubin (0.1-1.2) mg/dL AST (5-40) units/L ALT (7-56) units/L Alkaline Phosphatase (35-129) units/L Ammonia (25-60) umol/L Troponin T (0.00-0.029) ng/mL Total Protein (6.3-8.2) g/dL Albumin (3.9-5) g/dL Albumin/Globulin Ratio % TSH (0.270-4.200) mlU/mL Salicylates < 0.3 L (2.8-20.0) mg/dL Acetaminophen < 5.0 L (10.0-30.0) ug/mL Plasma/Serum Alcohol < 0.01 (0-0.07) % - Radiology Data Radiology results: report reviewed - Medical Decision Making On repeat exam of the patient at 6:58 PM he is alert oriented 3 and able to pass all questions appropriately. The patient tells me that is 02/24/2019. Patient states today he tripped on something in the living room of his home assessment his head on the floor. Results of all the testing was reviewed with the patient and he requested to go home. Critical care attestation.: If time is entered above; I have spent that time in minutes in the direct care of this critically ill patient, excluding procedure time. ED Disposition Clinical Impression: Closed head injury Disposition: DC-01 TO HOME OR SELFCARE Is pt being admited?: No Does the pt Need Aspirin: No Condition: Stable Instructions: Minor Head Injury (ED), Concussion (ED) Additional Instructions: return if worse Referrals: PRIMARY CARE, [Referring] - 3-5 Days [facility] [Provider Group] - 3-5 Days [facility] [Provider Group] - 3-5 Days Time of Disposition: 19:22
--- NOTE | 2019-02-24 17:55 | XRay Report ---
CHEST 1 VIEW INDICATION / CLINICAL INFORMATION: Altered Mental Status. COMPARISON: None available. FINDINGS: SUPPORT DEVICES: None. HEART / MEDIASTINUM: No significant abnormality. LUNGS / PLEURA: No significant pulmonary or pleural abnormality. No pneumothorax. ADDITIONAL FINDINGS: No significant additional findings. IMPRESSION: 1. No acute pulmonary disease. Signer Name: Queenie Swan MD Signed: 02/24/2019 5:50 PM Workstation Name: [id number]
[2019-02-24 18:06] LABS: Basophils % (Auto) 0.4 % (0.0-1.8); Eosinophils % (Auto) 0.5 % (0.0-4.3); Hematocrit 41.6 % (35.5-45.6); Hemoglobin 14.1 gm/dl (11.8-15.2); Lymphocytes # (Auto) 0.5 K/mm3 (1.2-5.4); Lymphocytes % (Auto) 8.7 % (13.4-35.0); Mean Corpuscular HGB Conc 34 % (32-34); Mean Corpuscular Volume 97 fl (84-94); Monocytes # (Auto) 0.5 K/mm3 (0.0-0.8); Monocytes % (Auto) 8.8 % (0.0-7.3); Platelet Count 161 K/mm3 (140-440); Red Cell Distribution Width 13.8 % (13.2-15.2)
[2019-02-24 18:18] LABS: INR 1.02 (0.87-1.13)
[2019-02-24 18:19] LABS: Partial Thromboplastin Time 25.8 Sec. (24.2-36.6)
--- NOTE | 2019-02-24 18:19 | Cat Scan Report ---
CT head/brain wo con INDICATION / CLINICAL INFORMATION: MAIN: Altered Mental Status. FALLS. POSTERIOR HEAD IMPACT.. TECHNIQUE: Axial CT imaging of the brain was obtained without IV contrast. Coronal and sagittal reformatted imag ing obtained and reviewed. All CT scans at this location are performed using CT dose reduction for AL DAYSI by means of automated exposure control. COMPARISON: 11/11/2018 FINDINGS: No intracranial hemorrhage, mass, or midline shift is identified. No extra-axial fluid collection or suggestion of acute territorial infarct. Ventricular system and basilar cisterns are unremarkable. Pr ominent perivascular space is noted bilaterallyMild, unchanged. Mild cerebral atrophy noted. Visualized paranasal sinuses and mastoid air cells are well aerated and clear. No calvarial abnormali ty. No soft tissue abnormality. IMPRESSION: 1. No acute intracranial abnormality. Signer Name: Queenie Swan MD Signed: 02/24/2019 6:15 PM Workstation Name: [id number]
[2019-02-24 18:32] LABS: Alanine Aminotransferase 26 units/L (7-56); Albumin 4.5 g/dL (3.9-5); BUN/Creatinine Ratio 12; Blood Urea Nitrogen 16 mg/dL (9-20); Calcium 9.7 mg/dL (8.4-10.2); Hemolysis Index 7
== END 2019-02-24 20:29 | disposition home or self-care (01) ==
LOC: ED 16:15
DX: S09.90XA Unspecified injury of head, initial encounter (principal); R41.82 Altered mental status, unspecified; I10 Essential (primary) hypertension; Z98.890 Other specified postprocedural states; Z87.891 Personal history of nicotine dependence; Z79.899 Other long term (current) drug therapy; Z88.0 Allergy status to penicillin; X58.XXXA Exposure to other specified factors, initial encounter; Y93.89 Activity, other specified; Y92.89 Other specified places as the place of occurrence of the external cause; Y99.8 Other external cause status
CPT/HCPCS: 36415; 70450; 71045; 80053; 80320; 82140; 84443; 84484; 85025; 85610; 85730; 87040; 99285; G0480

== ENCOUNTER 2019-02-24 22:32 | Emergency (ER) | payer MEDICARE, OTHER ==
[2019-02-24 22:37] VITALS: BP 129/83
--- NOTE | 2019-02-24 22:50 | Emergency Department Report ---
ED General Adult HPI - General Chief complaint: Dizziness Stated complaint: LOSS OF BALANCE Time Seen by Provider: 02/24/19 22:45 Source: patient, EMS Mode of arrival: Ambulatory Limitations: No Limitations - History of Present Illness Initial comments: 58 y.o. male with PMHx of HTN and alcoholism presents with complaint of a fall. Patient was recently discharged earlier today after a prior fall earlier after a verbal altercation with family. Patient states that he was brought here after he had a fall while in the middle of the road. EMS brought patient here and patient was able to ambulate while here in the emergency department. Patient denies any suicidal or homicidal ideation. Patient denies any auditory of visual hallucinations. Patient denies any illicit drug use or alcohol abuse. Patient states that he has no chest pain or shortness of breath. Patient states he suffered an abrasion to his posterior scalp region that was new from his recent discharge earlier this afternoon. - Related Data Previous Rx's Medication Instructions Recorded Last Taken Type Folic Acid [Folvite] 1 mg PO QDAY #30 tablet 05/14/18 Unknown Rx LORazepam [Ativan] 1 mg PO TID PRN #14 tablet 05/14/18 Unknown Rx Multivitamin Tab [Multiple Vitamin 1 each PO DAILY #30 tablet 05/14/18 Unknown Rx TAB (Theragran)] Thiamine [Vitamin B-1] 100 mg PO QDAY #30 tablet 05/14/18 Unknown Rx Sulfamethoxazole/Trimethoprim 1 each PO BID #14 tablet 11/11/18 Unknown Rx [Bactrim DS TAB] Allergies Allergy/AdvReac Type Severity Reaction Status Date / Time Penicillins Allergy Hives Verified 10/23/14 19:07 ED Review of Systems ROS: Stated complaint: LOSS OF BALANCE Other details as noted in HPI Constitutional: denies: chills, fever Eyes: denies: eye pain, eye discharge, vision change ENT: denies: ear pain, throat pain Respiratory: denies: cough, shortness of breath, wheezing Cardiovascular: denies: chest pain, palpitations Endocrine: no symptoms reported Gastrointestinal: denies: abdominal pain, nausea, diarrhea Genitourinary: denies: urgency, dysuria Musculoskeletal: denies: back pain, joint swelling, arthralgia Skin: denies: rash, lesions Neurological: other (dizziness) Psychiatric: denies: anxiety, depression Hematological/Lymphatic: denies: easy bleeding, easy bruising ED Past Medical Hx - Past Medical History Hx Hypertension: Yes (no meds) Hx Congestive Heart Failure: No Hx Diabetes: No Hx Liver Disease: Yes Hx Psychiatric Treatment: Yes (alcoholism, drug use, Oxycodone addiction) Hx Asthma: No Hx COPD: No Hx HIV: No Additional medical history: Hepatitis C, RT BBB - Surgical History Additional Surgical History: Mu. shoulder surgery - Social History Smoking Status: Unknown if ever smoked - Medications Home Medications: Home Medications Medication Instructions Recorded Confirmed Last Taken Type Folic Acid [Folvite] 1 mg PO QDAY #30 tablet 05/14/18 Unknown Rx LORazepam [Ativan] 1 mg PO TID PRN #14 tablet 05/14/18 Unknown Rx Multivitamin Tab [Multiple Vitamin 1 each PO DAILY #30 tablet 05/14/18 Unknown Rx TAB (Theragran)] Thiamine [Vitamin B-1] 100 mg PO QDAY #30 tablet 05/14/18 Unknown Rx Sulfamethoxazole/Trimethoprim 1 each PO BID #14 tablet 11/11/18 Unknown Rx [Bactrim DS TAB] ED Physical Exam - General Limitations: No Limitations General appearance: alert, in no apparent distress, other (dishelved) - Head Head exam: Present: normocephalic, other (abrasion to posteior scalp region with no evidence of laceration) - Eye Eye exam: Present: normal appearance - ENT ENT exam: Present: mucous membranes moist - Neck Neck exam: Present: normal inspection, full ROM. Absent: tenderness - Respiratory Respiratory exam: Present: normal lung sounds bilaterally. Absent: respiratory distress - Cardiovascular Cardiovascular Exam: Present: regular rate, normal rhythm. Absent: systolic murmur, diastolic murmur, rubs, gallop - GI/Abdominal GI/Abdominal exam: Present: soft, normal bowel sounds - Rectal Rectal exam: Present: deferred - Extremities Exam Extremities exam: Present: normal inspection, full ROM - Back Exam Back exam: Present: normal inspection - Neurological Exam Neurological exam: Present: alert, oriented X3 - Psychiatric Psychiatric exam: Present: normal affect, normal mood - Skin Skin exam: Present: warm, dry, intact, normal color, other (abrasion to bilateral knees). Absent: rash ED Course Vital Signs 02/24/19 22:34 Temperature 98.3 F Pulse Rate 89 Respiratory 16 Rate Blood Pressure 129/83 O2 Sat by Pulse 96 Oximetry ED Medical Decision Making - Medical Decision Making Patient ambulatory in the ER and appears in no acute distress. Patient is oriented to person place and time and will be discharged to follow up. Patient has normal neurologic examination. - Differential Diagnosis Subdural hematoma; Contusion; Intracranial Bleed Critical care attestation.: If time is entered above; I have spent that time in minutes in the direct care of this critically ill patient, excluding procedure time. ED Disposition Clinical Impression: Closed head injury Disposition: DC-01 TO HOME OR SELFCARE Is pt being admited?: No Does the pt Need Aspirin: No Condition: Stable Referrals: PRIMARY CARE, [Primary Care Provider] - 3-5 Days Print Language: UKRAINIAN
--- NOTE | 2019-02-25 00:05 | Cat Scan Report ---
CT HEAD WITHOUT CONTRAST INDICATION : Posterior headache after recent fall after discharge today. TECHNIQUE: Axial, coronal and sagittal CT imaging was performed from the skull apex through the skul l base without contrast. All CT scans at this location are performed using CT dose reduction for ALA RA by means of automated exposure control. COMPARISON: CT of the head without contrast from earlier today. FINDINGS: PARENCHYMA: No mass, midline shift, hemorrhage, extraaxial collection or acute territorial infarctio n. There is stable generalized atrophy. VENTRICLES: Symmetric and normal in size. SOFT TISSUES: Soft tissues including the orbits appear normal. BONES: No acute osseous abnormality. SINUSES: No significant abnormality. ADDITIONAL FINDINGS: None. IMPRESSION: No acute abnormality. Signer Name: Marlo Colorado MD Signed: 02/25/2019 12:01 AM Workstation Name: [id number]
== END 2019-02-25 01:00 | disposition home or self-care (01) ==
LOC: ED 22:32
DX: S00.01XA Abrasion of scalp, initial encounter (principal); S80.212A Abrasion, left knee, initial encounter; S80.211A Abrasion, right knee, initial encounter; I10 Essential (primary) hypertension; F10.10 Alcohol abuse, uncomplicated; Z98.890 Other specified postprocedural states; Z88.0 Allergy status to penicillin; W18.30XA Fall on same level, unspecified, initial encounter; Y93.89 Activity, other specified; Y92.488 Other paved roadways as the place of occurrence of the external cause; Y99.8 Other external cause status
CPT/HCPCS: 70450; 99283

== ENCOUNTER 2019-03-27 18:10 | Emergency (ER) | payer MEDICARE ==
--- NOTE | 2019-03-27 18:18 | Emergency Department Report ---
Blank Doc - Documentation Documentation: This is a 58-year-old male that presents with SI. Stated is depressed. This initial assessment/diagnostic orders/clinical plan/treatment(s) is/are subject to change based on patient's health status, clinical progression and re- assessment by fellow clinical providers in the ED. Further treatment and workup at subsequent clinical providers discretion. Patient/guardians urged not to elope from the ED as their condition may be serious if not clinically assessed and managed. Initial orders include: 1- Patient sent to MAIN ED for further evaluation and treatment 2- tool repairer bench was notified to have patient be brought back [facility]. 3- RN was notified to keep patient as close range and observation until room available 4- Patient presents with substantial risk of imminent harm to self, appears to be so unable to care for his/her own physical health and safety as to create an imminently life-endangering crisis, and has committed/expressed life endangering crisis to self. Due to this and other complaints, patient is put on 1013.
[2019-03-27 19:25] LABS: Basophils % (Auto) 0.6 % (0.0-1.8); Eosinophils # (Auto) 0.2 K/mm3 (0.0-0.4); Eosinophils % (Auto) 2.8 % (0.0-4.3); Hematocrit 45.1 % (35.5-45.6); Hemoglobin 15.7 gm/dl (11.8-15.2); Lymphocytes # (Auto) 0.8 K/mm3 (1.2-5.4); Lymphocytes % (Auto) 11.7 % (13.4-35.0); Mean Corpuscular HGB Conc 35 % (32-34); Mean Corpuscular Volume 94 fl (84-94); Monocytes # (Auto) 0.7 K/mm3 (0.0-0.8); Monocytes % (Auto) 10.8 % (0.0-7.3); Platelet Count 192 K/mm3 (140-440); Red Blood Count 4.77 M/mm3 (3.65-5.03); Red Cell Distribution Width 13.4 % (13.2-15.2)
[2019-03-27 19:40] LABS: BUN/Creatinine Ratio 28; Blood Urea Nitrogen 17 mg/dL (9-20); Calcium 9.3 mg/dL (8.4-10.2); Hemolysis Index 33
[2019-03-27 19:49] LABS: Alanine Aminotransferase 42 units/L (7-56); Albumin 4.3 g/dL (3.9-5)
[2019-03-27 19:54] LABS: Bilirubin,Direct < 0.2 mg/dL (0-0.2)
--- NOTE | 2019-03-27 20:03 | Emergency Department Report ---
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 Patient denies hallucinations. He states that he has not left the house much. He also states he has chronic back pain and abdominal pain and has had difficulty sleeping the last several nights. He last took oxycodone several days ago. He states he hasn't had alcoholic drink in the past 6 months. Chronic nausea reported without vomiting, diarrhea, or fever. Patient called his psychiatrist who then called and a prescription for Lexapro. Patient read the side effects and was hesitant to start the medication because it takes several weeks to become effective and is contraindicated in patients liver and kidney disease. Patient is not currently taking any medications for his medical psychiatric problems. - Related Data Previous Rx's Medication Instructions Recorded Last Taken Type Folic Acid [Folvite] 1 mg PO QDAY #30 tablet 05/14/18 Unknown Rx LORazepam [Ativan] 1 mg PO TID PRN #14 tablet 05/14/18 Unknown Rx Multivitamin Tab [Multiple Vitamin 1 each PO DAILY #30 tablet 05/14/18 Unknown Rx TAB (Theragran)] Thiamine [Vitamin B-1] 100 mg PO QDAY #30 tablet 05/14/18 Unknown Rx Sulfamethoxazole/Trimethoprim 1 each PO BID #14 tablet 11/11/18 Unknown Rx [Bactrim DS TAB] Allergies Allergy/AdvReac Type Severity Reaction Status Date / Time Penicillins Allergy Hives Verified 10/23/14 19:07 ED Review of Systems ROS: Stated complaint: DEPRESSION Other details as noted in HPI Comment: All other systems reviewed and negative ED Past Medical Hx - Past Medical History Previous Medical History?: Yes Hx Hypertension: Yes (no meds) Hx Congestive Heart Failure: No Hx Diabetes: No Hx Liver Disease: Yes Hx Psychiatric Treatment: Yes (alcoholism, drug use, Oxycodone addiction) Hx Asthma: No Hx COPD: No Hx HIV: No Additional medical history: Hepatitis C, RT BBB. Secondary hypothyroidism secondary to radiation exposure for cancer treatment. Tongue cancer with metastasis to the liver - Surgical History Past Surgical History?: No Additional Surgical History: Mu. shoulder surgery - Social History Smoking Status: Former Smoker Substance Use Type: None - Medications Home Medications: Home Medications Medication Instructions Recorded Confirmed Last Taken Type Folic Acid [Folvite] 1 mg PO QDAY #30 tablet 05/14/18 Unknown Rx LORazepam [Ativan] 1 mg PO TID PRN #14 tablet 05/14/18 Unknown Rx Multivitamin Tab [Multiple Vitamin 1 each PO DAILY #30 tablet 05/14/18 Unknown Rx TAB (Theragran)] Thiamine [Vitamin B-1] 100 mg PO QDAY #30 tablet 05/14/18 Unknown Rx Sulfamethoxazole/Trimethoprim 1 each PO BID #14 tablet 11/11/18 Unknown Rx [Bactrim DS TAB] ED Physical Exam - General Limitations: No Limitations - Other Other exam information: General: No acute distress Head: Atraumatic normocephalic Eyes: Normal appearance, pupils equal reactive to light, extraocular movements i ntact ENT: Normal oropharynx Neck: Normal appearance, no C-spine tenderness, no meningismus Chest: Clear to auscultation bilaterally, no wheezes, rales, or crackles Cardiovascular: Regular rate and rhythm Abdomen: Soft, nondistended, mild right-sided tenderness on examination, no rebound or guarding, normal bowel sounds Back: Normal inspection, nontender Extremity: Normal inspection, no deformity, full range of motion Neuro: Alert and oriented 3, speech clear, no gross motor or sensory deficit Psychiatric: Normal affect Skin: No rash, warmth, or erythema ED Course Vital Signs 03/27/19 03/27/19 18:17 20:09 Temperature 98.4 F 98.4 F Pulse Rate 85 72 Respiratory 18 20 Rate Blood Pressure 163/102 Blood Pressure 165/95 [Right] O2 Sat by Pulse 99 99 Oximetry ED Medical Decision Making - Lab Data Result diagrams: 03/27/19 19:02 03/27/19 19:02 Lab Results 03/27/19 03/27/19 03/27/19 Range/Units 19:02 19:02 19:02 WBC 6.8 (4.5-11.0) K/mm3 RBC 4.77 (3.65-5.03) M/mm3 Hgb 15.7 H (11.8-15.2) gm/dl Hct 45.1 (35.5-45.6) % MCV 94 (84-94) fl MCH 33 H (28-32) pg MCHC 35 H (32-34) % RDW 13.4 (13.2-15.2) % Plt Count 192 (140-440) K/mm3 Lymph % (Auto) 11.7 L (13.4-35.0) % [place] % (Auto) 10.8 H (0.0-7.3) % Eos % (Auto) 2.8 (0.0-4.3) % Baso % (Auto) 0.6 (0.0-1.8) % Lymph # 0.8 L (1.2-5.4) K/mm3 [place] # 0.7 (0.0-0.8) K/mm3 Eos # 0.2 (0.0-0.4) K/mm3 Baso # 0.0 (0.0-0.1) K/mm3 Seg Neutrophils % 74.1 H (40.0-70.0) % Seg Neutrophils # 5.0 (1.8-7.7) K/mm3 Sodium 131 L (137-145) mmol/L Potassium 4.1 (3.6-5.0) mmol/L Chloride 93.3 L (98-107) mmol/L Carbon Dioxide 26 (22-30) mmol/L Anion Gap 16 mmol/L BUN 17 (9-20) mg/dL Creatinine 0.6 L (0.8-1.5) mg/dL Estimated GFR > 60 ml/min BUN/Creatinine Ratio 28 % Glucose 96 (75-100) mg/dL Calcium 9.3 (8.4-10.2) mg/dL Total Bilirubin (0.1-1.2) mg/dL Direct Bilirubin (0-0.2) mg/dL Indirect Bilirubin mg/dL AST (5-40) units/L ALT (7-56) units/L Alkaline Phosphatase (35-129) units/L Total Protein (6.3-8.2) g/dL Albumin (3.9-5) g/dL Albumin/Globulin Ratio % Urine Color (Yellow) Urine Turbidity (Clear) Urine pH (5.0-7.0) Ur Specific [place] (1.003-1.030) Urine Protein (Negative) mg/dL Urine Glucose (UA) (Negative) mg/dL Urine Ketones (Negative) mg/dL Urine Blood (Negative) Urine Nitrite (Negative) Urine Bilirubin (Negative) Urine Urobilinogen (<2.0) mg/dL Ur Leukocyte Esterase (Negative) Urine WBC (Auto) (0.0-6.0) /HPF Urine RBC (Auto) (0.0-6.0) /HPF U Epithel Cells (Auto) (0-13.0) /HPF Amorphous Crystals Salicylates 3.6 (2.8-20.0) mg/dL Urine Opiates Screen Urine Methadone Screen Acetaminophen (10.0-30.0) ug/mL Ur Barbiturates Screen Ur Phencyclidine Scrn Ur Amphetamines Screen U Benzodiazepines Scrn Urine Cocaine Screen U Marijuana (THC) Screen Drugs of Abuse Note Plasma/Serum Alcohol (0-0.07) % 03/27/19 03/27/19 03/27/19 Range/Units 19:02 19:02 19:02 WBC (4.5-11.0) K/mm3 RBC (3.65-5.03) M/mm3 Hgb (11.8-15.2) gm/dl Hct (35.5-45.6) % MCV (84-94) fl MCH (28-32) pg MCHC (32-34) % RDW (13.2-15.2) % Plt Count (140-440) K/mm3 Lymph % (Auto) (13.4-35.0) % [place] % (Auto) (0.0-7.3) % Eos % (Auto) (0.0-4.3) % Baso % (Auto) (0.0-1.8) % Lymph # (1.2-5.4) K/mm3 [place] # (0.0-0.8) K/mm3 Eos # (0.0-0.4) K/mm3 Baso # (0.0-0.1) K/mm3 Seg Neutrophils % (40.0-70.0) % Seg Neutrophils # (1.8-7.7) K/mm3 Sodium (137-145) mmol/L Potassium (3.6-5.0) mmol/L Chloride (98-107) mmol/L Carbon Dioxide (22-30) mmol/L Anion Gap mmol/L BUN (9-20) mg/dL Creatinine (0.8-1.5) mg/dL Estimated GFR ml/min BUN/Creatinine Ratio % Glucose (75-100) mg/dL Calcium (8.4-10.2) mg/dL Total Bilirubin 0.20 (0.1-1.2) mg/dL Direct Bilirubin < 0.2 (0-0.2) mg/dL Indirect Bilirubin 0.0 mg/dL AST 33 (5-40) units/L ALT 42 (7-56) units/L Alkaline Phosphatase 108 (35-129) units/L Total Protein 7.9 (6.3-8.2) g/dL Albumin 4.3 (3.9-5) g/dL Albumin/Globulin Ratio 1.2 % Urine Color (Yellow) Urine Turbidity (Clear) Urine pH (5.0-7.0) Ur Specific [place] (1.003-1.030) Urine Protein (Negative) mg/dL Urine Glucose (UA) (Negative) mg/dL Urine Ketones (Negative) mg/dL Urine Blood (Negative) Urine Nitrite (Negative) Urine Bilirubin (Negative) Urine Urobilinogen (<2.0) mg/dL Ur Leukocyte Esterase (Negative) Urine WBC (Auto) (0.0-6.0) /HPF Urine RBC (Auto) (0.0-6.0) /HPF U Epithel Cells (Auto) (0-13.0) /HPF Amorphous Crystals Salicylates (2.8-20.0) mg/dL Urine Opiates Screen Urine Methadone Screen Acetaminophen < 5.0 L (10.0-30.0) ug/mL Ur Barbiturates Screen Ur Phencyclidine Scrn Ur Amphetamines Screen U Benzodiazepines Scrn Urine Cocaine Screen U Marijuana (THC) Screen Drugs of Abuse Note Plasma/Serum Alcohol < 0.01 (0-0.07) % 03/27/19 03/27/19 Range/Units 19:50 19:50 WBC (4.5-11.0) K/mm3 RBC (3.65-5.03) M/mm3 Hgb (11.8-15.2) gm/dl Hct (35.5-45.6) % MCV (84-94) fl MCH (28-32) pg MCHC (32-34) % RDW (13.2-15.2) % Plt Count (140-440) K/mm3 Lymph % (Auto) (13.4-35.0) % [place] % (Auto) (0.0-7.3) % Eos % (Auto) (0.0-4.3) % Baso % (Auto) (0.0-1.8) % Lymph # (1.2-5.4) K/mm3 [place] # (0.0-0.8) K/mm3 Eos # (0.0-0.4) K/mm3 Baso # (0.0-0.1) K/mm3 Seg Neutrophils % (40.0-70.0) % Seg Neutrophils # (1.8-7.7) K/mm3 Sodium (137-145) mmol/L Potassium (3.6-5.0) mmol/L Chloride (98-107) mmol/L Carbon Dioxide (22-30) mmol/L Anion Gap mmol/L BUN (9-20) mg/dL Creatinine (0.8-1.5) mg/dL Estimated GFR ml/min BUN/Creatinine Ratio % Glucose (75-100) mg/dL Calcium (8.4-10.2) mg/dL Total Bilirubin (0.1-1.2) mg/dL Direct Bilirubin (0-0.2) mg/dL Indirect Bilirubin mg/dL AST (5-40) units/L ALT (7-56) units/L Alkaline Phosphatase (35-129) units/L Total Protein (6.3-8.2) g/dL Albumin (3.9-5) g/dL Albumin/Globulin Ratio % Urine Color Yellow (Yellow) Urine Turbidity Slightly-cloudy (Clear) Urine pH 8.0 H (5.0-7.0) Ur Specific [place] 1.014 (1.003-1.030) Urine Protein <15 mg/dl (Negative) mg/dL Urine Glucose (UA) Neg (Negative) mg/dL Urine Ketones Neg (Negative) mg/dL Urine Blood Neg (Negative) Urine Nitrite Neg (Negative) Urine Bilirubin Neg (Negative) Urine Urobilinogen < 2.0 (<2.0) mg/dL Ur Leukocyte Esterase Neg (Negative) Urine WBC (Auto) 1.0 (0.0-6.0) /HPF Urine RBC (Auto) 2.0 (0.0-6.0) /HPF U Epithel Cells (Auto) < 1.0 (0-13.0) /HPF Amorphous Crystals Few Salicylates (2.8-20.0) mg/dL Urine Opiates Screen Presumptive negative Urine Methadone Screen Presumptive negative Acetaminophen (10.0-30.0) ug/mL Ur Barbiturates Screen Presumptive negative Ur Phencyclidine Scrn Presumptive negative Ur Amphetamines Screen Presumptive negative U Benzodiazepines Scrn Presumptive negative Urine Cocaine Screen Presumptive negative U Marijuana (THC) Screen Presumptive negative Drugs of Abuse Note Disclamer Plasma/Serum Alcohol (0-0.07) % - Radiology Data Radiology results: report reviewed CT abdomen pelvis w con INDICATION / CLINICAL INFORMATION: Abdominal pain, cirrhosis, tongue ca met to liver. TECHNIQUE: Contrast-enhanced CT of the abdomen and pelvis following administration of 100 mL Omnipaque 300. Multiplanar reformats are provided. All CT scans at this location are performed using CT dose reduction for [employer] by means of automated exposure control. COMPARISON: Noncontrast CT abdomen pelvis 05/25/2018 FINDINGS: Distal esophagus is unremarkable. The lung bases are clear. No evident pleural fluid. No focal liver lesion. Postcholecystectomy. No intrahepatic or extra hepatic biliary dilatation. Spleen normal. Adrenals normal. The pancreas is atrophic and contains a few calcifications within it body. No ductal dilatation is evident. No acute or otherwise significant abnormality of the kidneys, ureters and bladder. No abnormal dilatation or acute inflammatory change in the stomach, small or large intestine. Normal appendix is seen. Diverticulosis is present in the large bowel, without evidence of acute diverticulitis. No abdominal or pelvic lymphadenopathy. No ascites or organized fluid collection. No acute bony abnormality. No suspicious lytic or sclerotic lesion. IMPRESSION: 1. No acute abnormality. - Medical Decision Making pt medically cleared for psychiatric admission due to depression with suicidal thoughts Patient requested narcotic pain medicine. Patient only to receive Tylenol or Motrin. No acute process identified. Will not treat his pain with narcotics during ED stay Awaiting mental health evaluation for placement Will restart Norvasc for his blood pressure. - Differential Diagnosis psychosis, depression, chronic pain, suicidal, drug abuse, alcohol abuse Critical Care Time: No Critical care attestation.: If time is entered above; I have spent that time in minutes in the direct care of this critically ill patient, excluding procedure time. ED Disposition Clinical Impression: Depression, Suicidal ideation, Chronic pain, HTN (hypertension), Medical clearance for psychiatric admission, Noncompliance with medication regimen Disposition: DC/TX-65 PSY HOSP/PSY UNIT Is pt being admited?: No Condition: Stable Time of Disposition: 22:28 (awaiting psych acceptance)
[2019-03-27 20:25] LABS: Amorphous Crystals,Urine Few; Bilirubin,Urine NEG (Negative); Blood,Urine NEG (Negative); Color,Urine Yellow (Yellow); Protein,Urine <15 mg/dL mg/dL (Negative); Urobilinogen,Urine < 2.0 mg/dL (<2.0)
[2019-03-27 20:32] LABS: Amphetamine Screen,Urine PRESUMPTIVE NEGATIVE; Benzodiazepines Screen,Urine PRESUMPTIVE NEGATIVE; Cannabinoid Screen,Urine PRESUMPTIVE NEGATIVE; Cocaine Screen,Urine PRESUMPTIVE NEGATIVE; Methadone Screen,Urine PRESUMPTIVE NEGATIVE; Opiate Screen,Urine PRESUMPTIVE NEGATIVE
--- NOTE | 2019-03-27 21:53 | Cat Scan Report ---
CT abdomen pelvis w con INDICATION / CLINICAL INFORMATION: Abdominal pain, cirrhosis, tongue ca met to liver. TECHNIQUE: Contrast-enhanced CT of the abdomen and pelvis following administration of 100 mL Omnipaque 300. Mult iplanar reformats are provided. All CT scans at this location are performed using CT dose reduction f or ALARA by means of automated exposure control. COMPARISON: Noncontrast CT abdomen pelvis 05/25/2018 FINDINGS: Distal esophagus is unremarkable. The lung bases are clear. No evident pleural fluid. No focal liver lesion. Postcholecystectomy. No intrahepatic or extra hepatic biliary dilatation. Sple en normal. Adrenals normal. The pancreas is atrophic and contains a few calcifications within it body . No ductal dilatation is evident. No acute or otherwise significant abnormality of the kidneys, ureters and bladder. No abnormal dilatation or acute inflammatory change in the stomach, small or large intestine. Normal appendix is seen. Diverticulosis is present in the large bowel, without evidence of acute diverticuli tis. No abdominal or pelvic lymphadenopathy. No ascites or organized fluid collection. No acute bony abnormality. No suspicious lytic or sclerotic lesion. IMPRESSION: 1. No acute abnormality. Signer Name: Paulino Valerio MD Signed: 03/27/2019 9:49 PM Workstation Name: [email or web address]
[2019-03-27] MEDS ORDERED: ALUM-MAG HYDROX-SIMETH 200-200-20MG/5ML ONE (22:38)
[2019-03-27] MEDS ORDERED: LIDOCAINE VISCOUS 2% ONE (22:38)
[2019-03-27] MEDS ORDERED: ALUM-MAG HYDROX-SIMETH 200-200-20MG/5ML PO ONE (22:40)
[2019-03-27] MEDS ORDERED: LIDOCAINE VISCOUS 2% PO ONE (22:41)
[2019-03-28] MEDS ORDERED: NORVASC PO SCH (10:00)
[2019-03-28 10:25] VITALS: BP 112/79
--- NOTE | 2019-03-28 12:32 | Consultation ---
History of Present Illness - Reason for Consult Consult date: 03/28/19 Reason for consult: Mental Health Evaluation Requesting physician: DIOGENES PIKE - Chief Complaint Chief complaint: "I am not suicidal" - History of Present Psychiatric Illness 58 y.o. white male who presented to the ER for abdomen pain and SI's. Today the patient was calm and cooperative during the assessment. He stated that he m entioned that he felt like "dying" while he was going through cancer treatment when asked about SI's by the staff. He stated that he believe that the staff misunderstood him. He stated he is in remission (cancer) and is adamant that he want to live a long life. He stated that he has a hx of alcohol abuse/anxiety do and have not had a drink "in a long time" per the patient. He stated that his "anxiety" stem from his medical issues. He denies SI/HI's and AVH's. He denies erratic sleep and a poor appetite. He denies recreational drug use and alcohol consumption (etoh). Medications and Allergies Allergies Allergy/AdvReac Type Severity Reaction Status Date / Time Penicillins Allergy Hives Verified 10/23/14 19:07 Home Medications Medication Instructions Recorded Confirmed Last Taken Type Folic Acid [Folvite] 1 mg PO QDAY #30 tablet 05/14/18 Unknown Rx LORazepam [Ativan] 1 mg PO TID PRN #14 tablet 05/14/18 Unknown Rx Multivitamin Tab [Multiple Vitamin 1 each PO DAILY #30 tablet 05/14/18 Unknown Rx TAB (Theragran)] Thiamine [Vitamin B-1] 100 mg PO QDAY #30 tablet 05/14/18 Unknown Rx Sulfamethoxazole/Trimethoprim 1 each PO BID #14 tablet 11/11/18 Unknown Rx [Bactrim DS TAB] Active Meds: Active Medications Amlodipine Besylate (Norvasc) 5 mg PO DAILY MAXIMO Last Admin: 03/28/19 11:53 Dose: Not Given Documented by: Past psychiatric history - Past Medical History Past Medical History: other (Cancer) Past Surgical History: Other (Shoulder Surgery) - past Psychiatric treatment and history psychiatric treatment history: Hx of anxiety do. Denies a fam psy hx. - Social History Social history: lives with family Mental Status Exam - Vital signs Last Vital Signs Temp 97.9 F 03/28/19 10:24 Pulse 77 03/28/19 10:24 Resp 16 03/28/19 10:24 BP 112/79 03/28/19 10:24 Pulse Ox 98 03/28/19 10:24 - Exam Narrative exam: MSE: Appearance: calm, cooperative Behavior: regular eye contact Speech: regular rate and tone Mood: "okay" Affect: congruent to mood Thought Process: logical Thought Content: denies SI/HI's and AVH's Motor Activity: lying in bed Cognition: A/O x 3 Insight: appropriate Judgment: appropriate Results Result Diagrams: 03/27/19 19:02 03/27/19 19:02 Abnormal lab results 03/27/19 03/27/19 03/27/19 Range/Units 19:02 19:02 19:02 Hgb 15.7 H (11.8-15.2) gm/dl MCH 33 H (28-32) pg MCHC 35 H (32-34) % Lymph % (Auto) 11.7 L (13.4-35.0) % [place] % (Auto) 10.8 H (0.0-7.3) % Lymph # 0.8 L (1.2-5.4) K/mm3 Seg Neutrophils % 74.1 H (40.0-70.0) % Sodium 131 L (137-145) mmol/L Chloride 93.3 L (98-107) mmol/L Creatinine 0.6 L (0.8-1.5) mg/dL Urine pH (5.0-7.0) Acetaminophen < 5.0 L (10.0-30.0) ug/mL 03/27/19 Range/Units 19:50 Hgb (11.8-15.2) gm/dl MCH (28-32) pg MCHC (32-34) % Lymph % (Auto) (13.4-35.0) % [place] % (Auto) (0.0-7.3) % Lymph # (1.2-5.4) K/mm3 Seg Neutrophils % (40.0-70.0) % Sodium (137-145) mmol/L Chloride (98-107) mmol/L Creatinine (0.8-1.5) mg/dL Urine pH 8.0 H (5.0-7.0) Acetaminophen (10.0-30.0) ug/mL All other labs normal. Assessment and Plan Assessment and plan: Impression: Hx of Anxiety DO/Alcohol Abuse per the patient. Today the patient was calm and cooperative during the assessment. The patient is no threat to self. Recommendations/Plan: Rescind 1013. Dispo: The patient can follow up with [facility] for outpatient psy services. Staffed with Dr Rudy Stout.
== END 2019-03-28 16:05 | disposition home or self-care (01) ==
LOC: ED 18:10 → EEVIPCON 18:10 → ED 03-28 16:05
DX: F32.9 Major depressive disorder, single episode, unspecified (principal); R45.851 Suicidal ideations; I10 Essential (primary) hypertension; G89.29 Other chronic pain; Z91.14 Patient's other noncompliance with medication regimen; Z86.19 Personal history of other infectious and parasitic diseases; Z85.810 Personal history of malignant neoplasm of tongue; Z85.05 Personal history of malignant neoplasm of liver; Z88.0 Allergy status to penicillin; Z79.899 Other long term (current) drug therapy
CPT/HCPCS: 36415; 74177; 80048; 80076; 80307; 81001; 85025; 99285; Q9967; 80320; G0480

== ENCOUNTER 2019-04-18 15:29 | Emergency (ER) | payer MEDICARE, OTHER ==
[2019-04-18 16:11] LABS: Basophils % (Auto) 0.4 % (0.0-1.8); Eosinophils # (Auto) 0.1 K/mm3 (0.0-0.4); Eosinophils % (Auto) 1.8 % (0.0-4.3); Hematocrit 36.8 % (35.5-45.6); Hemoglobin 12.5 gm/dl (11.8-15.2); Lymphocytes # (Auto) 0.3 K/mm3 (1.2-5.4); Lymphocytes % (Auto) 8.1 % (13.4-35.0); Mean Corpuscular HGB Conc 34 % (32-34); Mean Corpuscular Volume 97 fl (84-94); Monocytes # (Auto) 0.4 K/mm3 (0.0-0.8); Monocytes % (Auto) 9.9 % (0.0-7.3); Platelet Count 126 K/mm3 (140-440); Red Blood Count 3.81 M/mm3 (3.65-5.03); Red Cell Distribution Width 13.8 % (13.2-15.2)
[2019-04-18 16:32] LABS: BUN/Creatinine Ratio 16; Blood Urea Nitrogen 18 mg/dL (9-20); Calcium 8.5 mg/dL (8.4-10.2); Hemolysis Index 9
--- NOTE | 2019-04-18 21:04 | Emergency Department Report ---
ED Dizziness HPI - General Chief Complaint: Syncope Stated Complaint: DEHYDRATED Time Seen by Provider: 04/18/19 20:49 Source: EMS Mode of arrival: Stretcher Limitations: No Limitations - History of Present Illness Initial Comments: Patient is 58 years old male with history of chronic alcoholism, narcotics addiction, remote history of tongue cancer with complete remission. Patient presented to the ER stating that he is feeling dizzy and also follows for one week. Patient had symptoms like this before several times according to his report. Patient had a CT brain in February and was told that was normal. Patient denied any head injury tonight. Patient is refusing CT brain. Patient denied any chest pain, shortness of breath, nausea or vomiting. No focal weakness numbness or tingling sensation. MD Complaint: dizziness -: Gradual, week(s) Timing: gradual onset Description: off-balance History of Same: Yes History of Trauma: No Severity: moderate Improves With: remaining still Worsens With: movement - Related Data Previous Rx's Medication Instructions Recorded Last Taken Type Folic Acid [Folvite] 1 mg PO QDAY #30 tablet 05/14/18 Unknown Rx LORazepam [Ativan] 1 mg PO TID PRN #14 tablet 05/14/18 Unknown Rx Multivitamin Tab [Multiple Vitamin 1 each PO DAILY #30 tablet 05/14/18 Unknown Rx TAB (Theragran)] Thiamine [Vitamin B-1] 100 mg PO QDAY #30 tablet 05/14/18 Unknown Rx Sulfamethoxazole/Trimethoprim 1 each PO BID #14 tablet 11/11/18 Unknown Rx [Bactrim DS TAB] Famotidine [Pepcid] 20 mg PO BID 30 Days #60 tablet 03/28/19 Unknown Rx Allergies Allergy/AdvReac Type Severity Reaction Status Date / Time Penicillins Allergy Hives Verified 10/23/14 19:07 ED Review of Systems ROS: Stated complaint: DEHYDRATED Other details as noted in HPI Comment: All other systems reviewed and negative Constitutional: denies: chills, fever Respiratory: denies: cough, orthopnea, shortness of breath Cardiovascular: denies: chest pain, palpitations Gastrointestinal: denies: abdominal pain, nausea, vomiting Musculoskeletal: denies: back pain ED Past Medical Hx - Past Medical History Previous Medical History?: Yes Hx Hypertension: Yes (no meds) Hx Congestive Heart Failure: No Hx Diabetes: No Hx Liver Disease: Yes Hx Psychiatric Treatment: Yes (alcoholism, drug use, Oxycodone addiction) Hx Asthma: No Hx COPD: No Hx HIV: No Additional medical history: Hepatitis C, RT BBB. Secondary hypothyroidism secondary to radiation exposure for cancer treatment. Tongue cancer with metastasis to the liver - Surgical History Past Surgical History?: Yes Additional Surgical History: Mu. shoulder surgery - Social History Smoking Status: Current Every Day Smoker Substance Use Type: Alcohol - Medications Home Medications: Home Medications Medication Instructions Recorded Confirmed Last Taken Type Folic Acid [Folvite] 1 mg PO QDAY #30 tablet 05/14/18 Unknown Rx LORazepam [Ativan] 1 mg PO TID PRN #14 tablet 05/14/18 Unknown Rx Multivitamin Tab [Multiple Vitamin 1 each PO DAILY #30 tablet 05/14/18 Unknown Rx TAB (Theragran)] Thiamine [Vitamin B-1] 100 mg PO QDAY #30 tablet 05/14/18 Unknown Rx Sulfamethoxazole/Trimethoprim 1 each PO BID #14 tablet 11/11/18 Unknown Rx [Bactrim DS TAB] Famotidine [Pepcid] 20 mg PO BID 30 Days #60 tablet 03/28/19 Unknown Rx ED Physical Exam - General Limitations: No Limitations General appearance: alert, in no apparent distress - Head Head exam: Present: atraumatic, normocephalic, normal inspection - Eye Eye exam: Present: normal appearance - ENT ENT exam: Present: normal exam, normal orophraynx, mucous membranes moist - Neck Neck exam: Present: normal inspection, full ROM. Absent: tenderness, meningismus, lymphadenopathy, thyromegaly - Respiratory Respiratory exam: Present: normal lung sounds bilaterally - Cardiovascular Cardiovascular Exam: Present: regular rate, normal rhythm, normal heart sounds - GI/Abdominal GI/Abdominal exam: Present: soft, normal bowel sounds. Absent: distended, tenderness, guarding, rebound, rigid, organomegaly, mass, bruit, pulsatile mass, hernia - Extremities Exam Extremities exam: Present: normal inspection, full ROM, normal capillary refill. Absent: tenderness, pedal edema, calf tenderness - Back Exam Back exam: Present: normal inspection, full ROM. Absent: CVA tenderness (R), CVA tenderness (L), muscle spasm, paraspinal tenderness, vertebral tenderness - Neurological Exam Neurological exam: Present: alert, oriented X3, CN II-XII intact, normal gait, reflexes normal. Absent: motor sensory deficit - Psychiatric Psychiatric exam: Present: normal mood - Skin Skin exam: Present: warm, intact, normal color ED Course Vital Signs 04/18/19 04/18/19 04/18/19 15:37 15:55 17:23 Temperature 98.2 F 98.9 F Pulse Rate 91 H 103 H Respiratory 97 H 16 Rate Blood Pressure 116/68 139/86 [Left] O2 Sat by Pulse 100 98 Oximetry ED Medical Decision Making - Lab Data Result diagrams: 04/18/19 16:00 04/18/19 16:00 - Radiology Data Radiology results: report reviewed - Medical Decision Making Patient is 58 years old male with history of chronic alcoholism, narcotics addiction, remote history of tongue cancer with complete remission. Patient presented to the ER stating that he is feeling dizzy and also follows for one week. Patient had symptoms like this before several times according to his report. Patient had a CT brain in February and was told that was normal. Patient denied any head injury tonight. Patient is refusing CT brain. Patient denied any chest pain, shortness of breath, nausea or vomiting. No focal weakness numbness or tingling sensation. Patient remained asymptomatic in the emergency room. Labs reviewed and is unremarkable. Patient advised to follow-up with his primary care physician in the next 2-3 days and to return to the ER if symptoms are not improved. Critical care attestation.: If time is entered above; I have spent that time in minutes in the direct care of this critically ill patient, excluding procedure time. ED Disposition Clinical Impression: Dizziness Disposition: DC-01 TO HOME OR SELFCARE Is pt being admited?: No Condition: Stable Instructions: Dizziness (ED) Referrals: MARSHA COUCH MD [Primary Care Provider] - 3-5 Days
[2019-04-18] MEDS ORDERED: NACL 0.9% 1000 ML 1,000 ML IV ONE (21:05)
--- NOTE | 2019-04-18 21:46 | XRay Report ---
CHEST 1 VIEW INDICATION: dizziness. COMPARISON: 02/24/2019 FINDINGS: SUPPORT DEVICES: None. HEART / MEDIASTINUM: No significant abnormality. LUNGS / PLEURA: No significant pulmonary or pleural abnormality. No pneumothorax. ADDITIONAL FINDINGS: IMPRESSION: 1. No acute findings. Signer Name: Von Grossman MD Signed: 04/18/2019 9:42 PM Workstation Name: [email or web address]
[2019-04-18] MEDS ORDERED: MIRACLE MIXTURE PO ONE (22:00)
[2019-04-19 00:57] VITALS: BP 153/86
== END 2019-04-19 00:55 | disposition home or self-care (01) ==
LOC: ED 15:29
DX: R42 Dizziness and giddiness (principal); I10 Essential (primary) hypertension; K70.9 Alcoholic liver disease, unspecified; F17.200 Nicotine dependence, unspecified, uncomplicated; Z98.890 Other specified postprocedural states; Z88.0 Allergy status to penicillin; Z79.899 Other long term (current) drug therapy
CPT/HCPCS: 36415; 71045; 80048; 84484; 85025; 93005; 93010; 96360; 99284; J7030